=== PATIENT | male | born 1935 | race Caucasian/White ===

== ENCOUNTER 2021-08-09 11:01 | Day surgery (SDC) | payer OTHER, BC ==
[2021-08-09] MEDS ORDERED: FERRIC CARBOXYMALTOSE 750 MG in SODIUM CHLORIDE 250 ML IVPB ONE (11:45)
[2021-08-09 13:22] VITALS: BP 136/82; PULSE 76; TEMP 97.6
== END 2021-08-09 14:00 | disposition home or self-care (01) ==
LOC: FM/S 11:01 → FINFUSION 11:01
PROVIDERS: ATTEND Family Medicine
PROC: 3E033GC Introduction of Other Therapeutic Substance into Peripheral Vein, Percutaneous Approach (ICD-10-PCS; principal; 2021-08-09)
DX: D50.9 Iron deficiency anemia, unspecified (principal); I48.91 Unspecified atrial fibrillation; I13.0 Hypertensive heart and chronic kidney disease with heart failure and stage 1 through stage 4 chronic kidney disease, or unspecified chronic kidney disease; N18.9 Chronic kidney disease, unspecified
CPT/HCPCS: 96365; J1439

== ENCOUNTER 2021-08-16 10:38 | Day surgery (SDC) | payer OTHER, BC ==
[2021-08-16 11:21] VITALS: TEMP 97.9
[2021-08-16] MEDS ORDERED: FERRIC CARBOXYMALTOSE 750 MG in SODIUM CHLORIDE 250 ML IVPB ONE (11:30)
[2021-08-16 13:35] VITALS: BP 129/71; PULSE 62
== END 2021-08-16 13:38 | disposition home or self-care (01) ==
LOC: FINFUSION 10:38 → FM/S 10:43 → FINFUSION 13:38
PROVIDERS: ATTEND Family Medicine
PROC: 3E033GC Introduction of Other Therapeutic Substance into Peripheral Vein, Percutaneous Approach (ICD-10-PCS; principal; 2021-08-16)
DX: D64.9 Anemia, unspecified (principal)
CPT/HCPCS: 96365; J1439

== ENCOUNTER 2022-02-17 04:41 | Day surgery (SDC) | payer OTHER, BC ==
[2022-02-12 16:20] VITALS: BMI 28.7
[2022-02-17 08:20] VITALS: PULSE 60
[2022-02-17 09:27] VITALS: TEMP 97.5
[2022-02-17 10:09] VITALS: BP 157/31
== END 2022-02-17 10:20 | disposition home or self-care (01) ==
LOC: JASU-ENDO 04:41
PROVIDERS: ATTEND Internal Medicine Gastroenterology
PROC: 0DBK8ZX Excision of Ascending Colon, Via Natural or Artificial Opening Endoscopic, Diagnostic (ICD-10-PCS; 2022-02-17)
PROC: 0DBH8ZX Excision of Cecum, Via Natural or Artificial Opening Endoscopic, Diagnostic (ICD-10-PCS; 2022-02-17)
PROC: 0DB98ZX Excision of Duodenum, Via Natural or Artificial Opening Endoscopic, Diagnostic (ICD-10-PCS; 2022-02-17)
PROC: 0DB78ZX Excision of Stomach, Pylorus, Via Natural or Artificial Opening Endoscopic, Diagnostic (ICD-10-PCS; 2022-02-17)
PROC: 0DBL8ZX Excision of Transverse Colon, Via Natural or Artificial Opening Endoscopic, Diagnostic (ICD-10-PCS; principal; 2022-02-17 09:00)
DX: Z12.11 Encounter for screening for malignant neoplasm of colon (principal); D12.3 Benign neoplasm of transverse colon; D12.0 Benign neoplasm of cecum; D12.2 Benign neoplasm of ascending colon; K57.30 Diverticulosis of large intestine without perforation or abscess without bleeding; K64.8 Other hemorrhoids; K55.20 Angiodysplasia of colon without hemorrhage; D50.9 Iron deficiency anemia, unspecified
CPT/HCPCS: 88305-TC; 88342-TC

== ENCOUNTER 2022-06-24 05:34 | Day surgery (SDC) | payer OTHER, BC ==
[2022-06-20 11:37] VITALS: BMI 26.4
[2022-06-24 15:10] VITALS: BP 146/80; PULSE 80; RESP 24; TEMP 98.2
== END 2022-06-24 15:00 | disposition home or self-care (01) ==
LOC: JRADIR 05:34
PROVIDERS: ATTEND Family Medicine
PROC: 0BBJ3ZX Excision of Left Lower Lung Lobe, Percutaneous Approach, Diagnostic (ICD-10-PCS; principal; 2022-06-24)
DX: C34.32 Malignant neoplasm of lower lobe, left bronchus or lung (principal)
CPT/HCPCS: 32408; 71046-TC-FY; 88305-TC; 88341-TC; 88342-TC

== ENCOUNTER 2022-09-08 04:56 | Day surgery (SDC) | payer OTHER, BC ==
[2022-09-03 10:28] VITALS: BMI 25.9
[2022-09-08 08:06] LABS: BASO % 0.9 % (0-2.0); EOS % 4.2 % (0-4.5); HEMATOCRIT 42.2 % (35.4-49); HEMOGLOBIN 14.2 GM/dL (11.7-16.9); LYMPH % 11.4 % (8-40); MCH 34.9 pg (25.7-33.7); MCHC 33.6 g/dl (32.0-35.9); MEAN CELL VOLUME 103.8 fl (80-96); MEAN PLT VOLUME 7.4 fl (7.5-11.1); MONO % 10.4 % (3.8-10.2); NEUT % 73.1 % (42.8-82.8); PLATELET COUNT 160 10^3/uL (134-434); RBC 4.07 M/mm3 (4.00-5.60); RDW 14.9 % (11.9-15.9); WHITE BLOOD COUNT 6.8 K/mm3 (4.0-10.0)
[2022-09-08 08:31] LABS: ALBUMIN 3.1 g/dl (3.4-5.0); BLOOD UREA NITROGEN 18.6 mg/dL (7-18); CALCIUM 9.2 mg/dL (8.5-10.1)
[2022-09-08 08:34] LABS: BILIRUBIN,DIRECT 0.3 mg/dL (0.0-0.2); CREATININE 1.2 mg/dL (0.55-1.3)
[2022-09-08 08:36] LABS: BILIRUBIN,TOTAL 0.9 mg/dL (0.2-1)
[2022-09-08] MEDS ORDERED: SODIUM CHLORIDE 250 ML IV ONE (09:00)
[2022-09-08] MEDS ORDERED: FENTANYL CITRATE/PF 50 MCG/ML VIAL ONE (09:05)
[2022-09-08] MEDS ORDERED: MIDAZOLAM HCL 2 MG/2 ML SINGLE DOSE VIAL ONE (09:05)
[2022-09-08] MEDS ORDERED: MIDAZOLAM HCL 2 MG/2 ML SINGLE DOSE VIAL IVPUSH ONE (09:40)
[2022-09-08] MEDS ORDERED: FENTANYL CITRATE/PF 50 MCG/ML VIAL IVPUSH ONE (09:40)
[2022-09-08] MEDS ORDERED: FOSAPREPITANT DIMEGLUMINE 150 MG in SODIUM CHLORIDE 145 ML IVPB ONE (10:00)
[2022-09-08] MEDS ORDERED: DEXAMETHASONE SODIUM PHOSPHATE 10 MG in SODIUM CHLORIDE 50 ML IVPB ONE (10:00)
[2022-09-08] MEDS ORDERED: PALONOSETRON HCL 0.25 MG/5 ML VIAL IVPUSH ONE (10:00)
[2022-09-08] MEDS ORDERED: SODIUM CHLORIDE IVPB ONE (10:30)
[2022-09-08] MEDS ORDERED: CARBOPLATIN IVPB ONE (10:30)
[2022-09-08] MEDS ORDERED: ETOPOSIDE 160 MG in SODIUM CHLORIDE 0.9% 500 ML IV ONE (11:00)
[2022-09-08 11:07] VITALS: TEMP 97.3
[2022-09-08] MEDS ORDERED: SODIUM CHLORIDE 0.9% IV ONE (12:15)
[2022-09-08] MEDS ORDERED: ETOPOSIDE IV ONE (12:15)
[2022-09-08] MEDS ORDERED: PORTA CATH FLUSH 10 ML IVPUSH PRN (17:53)
[2022-09-09 07:54] VITALS: BP 103/53; PULSE 60; RESP 18
== END 2022-09-08 11:36 | disposition home or self-care (01) ==
LOC: JRADIR 04:56
PROVIDERS: ATTEND Internal Medicine Hematology & Oncology
PROC: 3E04305 Introduction of Other Antineoplastic into Central Vein, Percutaneous Approach (ICD-10-PCS; principal; 2022-09-08)
PROC: 0JH63WZ Insertion of Totally Implantable Vascular Access Device into Chest Subcutaneous Tissue and Fascia, Percutaneous Approach (ICD-10-PCS; 2022-09-08)
PROC: 02HV33Z Insertion of Infusion Device into Superior Vena Cava, Percutaneous Approach (ICD-10-PCS; 2022-09-08)
PROC: B548ZZA Ultrasonography of Superior Vena Cava, Guidance (ICD-10-PCS; 2022-09-08)
DX: Z51.11 Encounter for antineoplastic chemotherapy (principal); C34.90 Malignant neoplasm of unspecified part of unspecified bronchus or lung
CPT/HCPCS: 36561; 96367; 96375; 96413; 96415; 96417; C1788; 36415; 77001-TC-FY; 80048; 80076; 82378; 83735; 85025; J1453; J2469; J9181

== ENCOUNTER 2022-09-09 15:45 | Day surgery (SDC) | payer OTHER, BC ==
[~2022-09-09 15:45] MED LIST: DEXAMETHASONE SODIUM PHOSPHATE 6 MG in SODIUM CHLORIDE 50 ML IVPB ONE; ETOPOSIDE 160 MG in SODIUM CHLORIDE 0.9% 500 ML IV ONE
[2022-09-09 16:07] VITALS: RESP 20; TEMP 97.4
[2022-09-09] MEDS ORDERED: PORTA CATH FLUSH 10 ML IVPUSH PRN (16:12)
[2022-09-09 16:13] VITALS: BP 132/65; PULSE 59
== END 2022-09-09 16:00 | disposition home or self-care (01) ==
LOC: J7W 15:45 → JONCCHEMO 15:45
PROVIDERS: ATTEND Internal Medicine Hematology & Oncology
DX: Z51.11 Encounter for antineoplastic chemotherapy (principal); C34.90 Malignant neoplasm of unspecified part of unspecified bronchus or lung
CPT/HCPCS: 96375; 96413; 96415

== ENCOUNTER 2022-09-10 11:59 | Day surgery (SDC) | payer OTHER, BC ==
[~2022-09-10 11:59] MED LIST changes: +DEXAMETHASONE SODIUM PHOSPHATE 4 MG in SODIUM CHLORIDE 50 ML IVPB ONE; -DEXAMETHASONE SODIUM PHOSPHATE 6 MG in SODIUM CHLORIDE 50 ML IVPB ONE
[2022-09-10 15:13] VITALS: RESP 20; TEMP 97.4
[2022-09-10 15:44] VITALS: BP 118/73; PULSE 59
[2022-09-10] MEDS ORDERED: PORTA CATH FLUSH 10 ML IVPUSH PRN (15:50)
== END 2022-09-10 14:35 | disposition home or self-care (01) ==
LOC: JONCCHEMO 11:59
PROVIDERS: ATTEND Internal Medicine Hematology & Oncology
DX: Z51.11 Encounter for antineoplastic chemotherapy (principal); C34.90 Malignant neoplasm of unspecified part of unspecified bronchus or lung
CPT/HCPCS: 96375; 96413; 96415

== ENCOUNTER 2022-09-11 10:55 | Day surgery (SDC) | payer OTHER, BC ==
[~2022-09-11 10:55] MED LIST changes: -DEXAMETHASONE SODIUM PHOSPHATE 4 MG in SODIUM CHLORIDE 50 ML IVPB ONE; -ETOPOSIDE 160 MG in SODIUM CHLORIDE 0.9% 500 ML IV ONE; +PEGFILGRASTIM-CBQV (UDENYCA) 6 MG/0.6 ML SYRINGE SQ ONE
[2022-09-11 13:17] VITALS: BP 127/76; PULSE 59; RESP 18; TEMP 96.8
== END 2022-09-11 11:30 | disposition home or self-care (01) ==
LOC: JONCCHEMO 10:55
PROVIDERS: ATTEND Internal Medicine Hematology & Oncology
PROC: 3E013GC Introduction of Other Therapeutic Substance into Subcutaneous Tissue, Percutaneous Approach (ICD-10-PCS; principal; 2022-09-11)
DX: Z76.89 Persons encountering health services in other specified circumstances (principal); C34.90 Malignant neoplasm of unspecified part of unspecified bronchus or lung
CPT/HCPCS: 96372; Q5111

== ENCOUNTER → 2022-09-29 | Day surgery (SDC) | payer OTHER, BC ==
[~2022-09-29] MED LIST changes: +CARBOPLATIN IVPB ONE; +DEXAMETHASONE SODIUM PHOSPHATE 8 MG in SODIUM CHLORIDE 50 ML IVPB ONE; +ETOPOSIDE IV ONE; +FOSAPREPITANT DIMEGLUMINE 150 MG in SODIUM CHLORIDE 145 ML IVPB ONE; +PALONOSETRON HCL 0.25 MG/5 ML VIAL IVPUSH ONE; -PEGFILGRASTIM-CBQV (UDENYCA) 6 MG/0.6 ML SYRINGE SQ ONE; +PORTA CATH FLUSH 10 ML IVPUSH PRN; +SODIUM CHLORIDE 0.9% IV ONE; +SODIUM CHLORIDE 250 ML IV ONE; +SODIUM CHLORIDE IVPB ONE
[2022-09-29 11:10] LABS: BASO % 0.2 % (0-2.0); EOS % 0.5 % (0-4.5); HEMOGLOBIN 13.2 GM/dL (11.7-16.9); LYMPH % 5.6 % (8-40); MCH 35.1 pg (25.7-33.7); MCHC 33.8 g/dl (32.0-35.9); MEAN CELL VOLUME 103.7 fl (80-96); MEAN PLT VOLUME 7.8 fl (7.5-11.1); MONO % 13.2 % (3.8-10.2); NEUT % 80.5 % (42.8-82.8); PLATELET COUNT 173 10^3/uL (134-434); RBC 3.76 M/mm3 (4.00-5.60); RDW 14.5 % (11.9-15.9)
[2022-09-29 11:34] LABS: CALCIUM 9.2 mg/dL (8.5-10.1)
[2022-09-29 11:35] LABS: ALBUMIN 3.2 g/dl (3.4-5.0); BLOOD UREA NITROGEN 21.6 mg/dL (7-18)
[2022-09-29 11:37] LABS: BILIRUBIN,DIRECT 0.3 mg/dL (0.0-0.2); URIC ACID 4.3 mg/dL (2.6-7.2)
[2022-09-29 11:38] LABS: CREATININE 1.3 mg/dL (0.55-1.3)
[2022-09-29 11:39] LABS: BILIRUBIN,TOTAL 0.6 mg/dL (0.2-1); TOT PROT 6.3 g/dl (6.4-8.2)
[2022-09-29 15:18] VITALS: RESP 18; TEMP 97.5
[2022-09-29 16:24] VITALS: BP 142/75; PULSE 59
== END | disposition home or self-care (01) ==
LOC: JONCCHEMO 10:09
PROVIDERS: ATTEND Internal Medicine Hematology & Oncology
DX: Z51.11 Encounter for antineoplastic chemotherapy (principal); C34.90 Malignant neoplasm of unspecified part of unspecified bronchus or lung
CPT/HCPCS: 36415; 80048; 80076; 83615; 83735; 84550; 85025; 96367; 96375; 96413; 96415; 96417; J1453; J2469; J9181

== ENCOUNTER 2022-09-30 09:32 | Day surgery (SDC) | payer OTHER, BC ==
[~2022-09-30 09:32] MED LIST changes: -CARBOPLATIN IVPB ONE; +DEXAMETHASONE SODIUM PHOSPHATE 6 MG in SODIUM CHLORIDE 50 ML IVPB ONE; -DEXAMETHASONE SODIUM PHOSPHATE 8 MG in SODIUM CHLORIDE 50 ML IVPB ONE; -ETOPOSIDE IV ONE; -FOSAPREPITANT DIMEGLUMINE 150 MG in SODIUM CHLORIDE 145 ML IVPB ONE; -PALONOSETRON HCL 0.25 MG/5 ML VIAL IVPUSH ONE; -PORTA CATH FLUSH 10 ML IVPUSH PRN; -SODIUM CHLORIDE 0.9% IV ONE; -SODIUM CHLORIDE 250 ML IV ONE; -SODIUM CHLORIDE IVPB ONE
[2022-09-30] MEDS ORDERED: ETOPOSIDE IV ONE (10:00)
[2022-09-30] MEDS ORDERED: SODIUM CHLORIDE 0.9% IV ONE (10:00)
[2022-09-30 17:58] VITALS: BP 131/77; PULSE 63; RESP 20; TEMP 97.7
[2022-09-30] MEDS ORDERED: PORTA CATH FLUSH 10 ML IVPUSH PRN (17:58)
== END 2022-09-30 13:10 | disposition home or self-care (01) ==
LOC: JONCCHEMO 09:32
PROVIDERS: ATTEND Internal Medicine Hematology & Oncology
PROC: 3E04305 Introduction of Other Antineoplastic into Central Vein, Percutaneous Approach (ICD-10-PCS; principal; 2022-09-30)
PROC: 3E043GC Introduction of Other Therapeutic Substance into Central Vein, Percutaneous Approach (ICD-10-PCS; 2022-09-30)
DX: Z51.11 Encounter for antineoplastic chemotherapy (principal); C34.90 Malignant neoplasm of unspecified part of unspecified bronchus or lung
CPT/HCPCS: 96375; 96413; 96415

== ENCOUNTER 2022-10-01 09:49 | Day surgery (SDC) | payer OTHER, BC ==
[~2022-10-01 09:49] MED LIST changes: +DEXAMETHASONE SODIUM PHOSPHATE 4 MG in SODIUM CHLORIDE 50 ML IVPB ONE; -DEXAMETHASONE SODIUM PHOSPHATE 6 MG in SODIUM CHLORIDE 50 ML IVPB ONE
[2022-10-01] MEDS ORDERED: SODIUM CHLORIDE 0.9% IV ONE (10:00)
[2022-10-01] MEDS ORDERED: ETOPOSIDE IV ONE (10:00)
[2022-10-01 14:53] VITALS: BP 136/69; PULSE 60; RESP 18; TEMP 97.4
[2022-10-01] MEDS ORDERED: PORTA CATH FLUSH 10 ML IVPUSH PRN (14:59)
== END 2022-10-01 13:50 | disposition home or self-care (01) ==
LOC: JONCCHEMO 09:49
PROVIDERS: ATTEND Internal Medicine Hematology & Oncology
PROC: 3E04305 Introduction of Other Antineoplastic into Central Vein, Percutaneous Approach (ICD-10-PCS; principal; 2022-10-01)
PROC: 3E043GC Introduction of Other Therapeutic Substance into Central Vein, Percutaneous Approach (ICD-10-PCS; 2022-10-01)
DX: Z51.11 Encounter for antineoplastic chemotherapy (principal); C34.90 Malignant neoplasm of unspecified part of unspecified bronchus or lung
CPT/HCPCS: 96375; 96413; 96415

== ENCOUNTER 2022-10-02 10:25 | Day surgery (SDC) | payer OTHER, BC ==
[~2022-10-02 10:25] MED LIST changes: -DEXAMETHASONE SODIUM PHOSPHATE 4 MG in SODIUM CHLORIDE 50 ML IVPB ONE; +PEGFILGRASTIM-CBQV (UDENYCA) 6 MG/0.6 ML SYRINGE SQ ONE
[2022-10-02 12:34] VITALS: BP 143/76; PULSE 60; RESP 20; TEMP 97.5
== END 2022-10-02 11:05 | disposition home or self-care (01) ==
LOC: JONCCHEMO 10:25
PROVIDERS: ATTEND Internal Medicine Hematology & Oncology
PROC: 3E013GC Introduction of Other Therapeutic Substance into Subcutaneous Tissue, Percutaneous Approach (ICD-10-PCS; principal; 2022-10-02)
DX: C34.90 Malignant neoplasm of unspecified part of unspecified bronchus or lung (principal); Z76.89 Persons encountering health services in other specified circumstances
CPT/HCPCS: 96372; Q5111

== ENCOUNTER → 2022-10-20 | Day surgery (SDC) | payer OTHER, BC ==
[~2022-10-20] MED LIST changes: +DEXAMETHASONE SODIUM PHOSPHATE 8 MG in SODIUM CHLORIDE 50 ML IVPB ONE; +ETOPOSIDE IV ONE; +FOSAPREPITANT DIMEGLUMINE 150 MG in SODIUM CHLORIDE 145 ML IVPB ONE; +PALONOSETRON HCL 0.25 MG/5 ML VIAL IVPUSH ONE; -PEGFILGRASTIM-CBQV (UDENYCA) 6 MG/0.6 ML SYRINGE SQ ONE; +SODIUM CHLORIDE 0.9% IV ONE; +SODIUM CHLORIDE 250 ML IV ONE
[2022-10-20 10:31] LABS: BASO % 0.2 % (0-2.0); EOS % 2.4 % (0-4.5); HEMATOCRIT 33.4 % (35.4-49); HEMOGLOBIN 11.3 GM/dL (11.7-16.9); LYMPH % 6.3 % (8-40); MCH 35.3 pg (25.7-33.7); MCHC 33.8 g/dl (32.0-35.9); MEAN CELL VOLUME 104.5 fl (80-96); MEAN PLT VOLUME 7.1 fl (7.5-11.1); MONO % 14.5 % (3.8-10.2); NEUT % 76.6 % (42.8-82.8); PLATELET COUNT 146 10^3/uL (134-434); RDW 16.9 % (11.9-15.9); WHITE BLOOD COUNT 6.1 K/mm3 (4.0-10.0)
[2022-10-20 10:55] LABS: CALCIUM 9.1 mg/dL (8.5-10.1)
[2022-10-20 10:56] LABS: ALBUMIN 2.9 g/dl (3.4-5.0); BLOOD UREA NITROGEN 16.7 mg/dL (7-18); MAGNESIUM 2.1 mg/dL (1.8-2.4)
[2022-10-20 10:58] LABS: BILIRUBIN,DIRECT 0.2 mg/dL (0.0-0.2)
[2022-10-20 10:59] LABS: CREATININE 1.3 mg/dL (0.55-1.3)
[2022-10-20 11:00] LABS: TOT PROT 5.7 g/dl (6.4-8.2)
[2022-10-20 11:01] LABS: BILIRUBIN,TOTAL 0.4 mg/dL (0.2-1)
== END | disposition home or self-care (01) ==
LOC: JONCCHEMO 09:19
PROVIDERS: ATTEND Internal Medicine Hematology & Oncology
DX: Z53.8 Procedure and treatment not carried out for other reasons (principal)
CPT/HCPCS: 36415; 80048; 80076; 83735; 85025

== ENCOUNTER 2022-10-28 12:05 | Day surgery (SDC) | payer OTHER, BC ==
[2022-10-28 12:37] LABS: BASO % 0.4 % (0-2.0); EOS % 1.4 % (0-4.5); HEMATOCRIT 36.1 % (35.4-49); HEMOGLOBIN 12.3 GM/dL (11.7-16.9); LYMPH % 5.6 % (8-40); MCHC 34.1 g/dl (32.0-35.9); MEAN CELL VOLUME 105.8 fl (80-96); MEAN PLT VOLUME 7.4 fl (7.5-11.1); MONO % 13.5 % (3.8-10.2); NEUT % 79.1 % (42.8-82.8); PLATELET COUNT 172 10^3/uL (134-434); RBC 3.42 M/mm3 (4.00-5.60); RDW 18.3 % (11.9-15.9); WHITE BLOOD COUNT 7.4 K/mm3 (4.0-10.0)
[2022-10-28 13:06] LABS: CALCIUM 9.3 mg/dL (8.5-10.1)
[2022-10-28 13:07] LABS: ALBUMIN 3.1 g/dl (3.4-5.0); BLOOD UREA NITROGEN 23.5 mg/dL (7-18)
[2022-10-28 13:09] LABS: CREATININE 1.4 mg/dL (0.55-1.3); URIC ACID 3.9 mg/dL (2.6-7.2)
[2022-10-28 13:10] LABS: BILIRUBIN,DIRECT 0.2 mg/dL (0.0-0.2)
[2022-10-28 13:11] LABS: TOT PROT 6.2 g/dl (6.4-8.2)
[2022-10-28 13:12] LABS: BILIRUBIN,TOTAL 0.5 mg/dL (0.2-1)
[2022-10-28 13:26] LABS: ANISOCYTOSIS 1+; MACROCYTOSIS 1+
[2022-10-28] MEDS ORDERED: SODIUM CHLORIDE 250 ML IV ONE (13:30)
[2022-10-28] MEDS ORDERED: PALONOSETRON HCL 0.25 MG/5 ML VIAL IVPUSH ONE (14:00)
[2022-10-28] MEDS ORDERED: DEXAMETHASONE INJECTION 8 MG in SODIUM CHLORIDE 50 ML IVPB ONE (14:00)
[2022-10-28] MEDS ORDERED: FOSAPREPITANT DIMEGLUMINE 150 MG in SODIUM CHLORIDE 145 ML IVPB ONE (14:00)
[2022-10-28] MEDS ORDERED: ETOPOSIDE IV ONE (15:00)
[2022-10-28] MEDS ORDERED: SODIUM CHLORIDE 0.9% IV ONE (15:00)
[2022-10-28 18:41] VITALS: BP 96/50; PULSE 60; RESP 20; TEMP 97.4
[2022-10-28] MEDS ORDERED: PORTA CATH FLUSH 10 ML IVPUSH PRN (18:41)
== END 2022-10-28 18:00 | disposition home or self-care (01) ==
LOC: JONCCHEMO 12:05
PROVIDERS: ATTEND Internal Medicine Hematology & Oncology
DX: Z51.11 Encounter for antineoplastic chemotherapy (principal); C34.90 Malignant neoplasm of unspecified part of unspecified bronchus or lung
CPT/HCPCS: 36415; 80048; 80076; 83615; 83735; 84550; 85025; 96367; 96375; 96413; 96415; 96417; J1100; J1453; J2469; J9181

== ENCOUNTER 2022-10-29 13:29 | Day surgery (SDC) | payer OTHER, BC ==
[~2022-10-29 13:29] MED LIST changes: +DEXAMETHASONE SODIUM PHOSPHATE 6 MG in SODIUM CHLORIDE 50 ML IVPB ONE; -DEXAMETHASONE SODIUM PHOSPHATE 8 MG in SODIUM CHLORIDE 50 ML IVPB ONE; -FOSAPREPITANT DIMEGLUMINE 150 MG in SODIUM CHLORIDE 145 ML IVPB ONE; -PALONOSETRON HCL 0.25 MG/5 ML VIAL IVPUSH ONE; -SODIUM CHLORIDE 250 ML IV ONE
[2022-10-29 16:43] VITALS: BP 124/59; PULSE 124; RESP 63; TEMP 97.8
[2022-10-29] MEDS ORDERED: PORTA CATH FLUSH 10 ML IVPUSH PRN (16:43)
== END 2022-10-29 16:30 | disposition home or self-care (01) ==
LOC: JONCCHEMO 13:29
PROVIDERS: ATTEND Internal Medicine Hematology & Oncology
DX: Z51.11 Encounter for antineoplastic chemotherapy (principal); C34.90 Malignant neoplasm of unspecified part of unspecified bronchus or lung
CPT/HCPCS: 96367; 96413; 96415

== ENCOUNTER 2022-10-30 12:06 | Day surgery (SDC) | payer OTHER, BC ==
[~2022-10-30 12:06] MED LIST changes: +DEXAMETHASONE SODIUM PHOSPHATE 4 MG in SODIUM CHLORIDE 50 ML IVPB ONE; -DEXAMETHASONE SODIUM PHOSPHATE 6 MG in SODIUM CHLORIDE 50 ML IVPB ONE
[2022-10-30 15:31] VITALS: RESP 18; TEMP 97.3
[2022-10-30] MEDS ORDERED: PORTA CATH FLUSH 10 ML IVPUSH PRN (15:36)
[2022-10-30 15:37] VITALS: BP 162/80; PULSE 59
== END 2022-10-30 15:30 | disposition home or self-care (01) ==
LOC: JONCCHEMO 12:06
PROVIDERS: ATTEND Internal Medicine Hematology & Oncology
DX: Z51.11 Encounter for antineoplastic chemotherapy (principal); C34.90 Malignant neoplasm of unspecified part of unspecified bronchus or lung
CPT/HCPCS: 96375; 96413; 96415; J9999

== ENCOUNTER 2022-10-31 08:22 | Day surgery (SDC) | payer OTHER, BC ==
[2022-10-31] MEDS ORDERED: PEGFILGRASTIM-CBQV (UDENYCA) 6 MG/0.6 ML SYRINGE SQ ONE (10:00)
[2022-10-31 15:13] VITALS: BP 156/83; PULSE 59; RESP 20; TEMP 97.3
== END 2022-10-31 13:45 | disposition home or self-care (01) ==
LOC: JONCCHEMO 08:22
PROVIDERS: ATTEND Internal Medicine Hematology & Oncology
PROC: 3E013GC Introduction of Other Therapeutic Substance into Subcutaneous Tissue, Percutaneous Approach (ICD-10-PCS; principal; 2022-10-31)
DX: C34.90 Malignant neoplasm of unspecified part of unspecified bronchus or lung (principal); Z76.89 Persons encountering health services in other specified circumstances
CPT/HCPCS: 96372; Q5111

== ENCOUNTER 2022-11-18 10:12 | Day surgery (SDC) | payer OTHER, BC ==
[~2022-11-18 10:12] MED LIST changes: +DEXAMETHASONE INJECTION 8 MG in SODIUM CHLORIDE 50 ML IVPB ONE; -DEXAMETHASONE SODIUM PHOSPHATE 4 MG in SODIUM CHLORIDE 50 ML IVPB ONE; -ETOPOSIDE IV ONE; +FOSAPREPITANT DIMEGLUMINE 150 MG in SODIUM CHLORIDE 145 ML IVPB ONE; +PALONOSETRON HCL 0.25 MG/5 ML VIAL IVPUSH ONE; -SODIUM CHLORIDE 0.9% IV ONE; +SODIUM CHLORIDE 250 ML IV ONE
[2022-11-18] MEDS ORDERED: ETOPOSIDE IV ONE (10:30)
[2022-11-18] MEDS ORDERED: SODIUM CHLORIDE 0.9% IV ONE (10:30)
[2022-11-18 11:33] LABS: BASO % 0.1 % (0-2.0); EOS % 1.1 % (0-4.5); HEMOGLOBIN 11.8 GM/dL (11.7-16.9); LYMPH % 2.3 % (8-40); MCH 37.5 pg (25.7-33.7); MCHC 34.5 g/dl (32.0-35.9); MEAN CELL VOLUME 108.6 fl (80-96); MEAN PLT VOLUME 7.5 fl (7.5-11.1); MONO % 15.8 % (3.8-10.2); NEUT % 80.7 % (42.8-82.8); PLATELET COUNT 100 10^3/uL (134-434); RBC 3.13 M/mm3 (4.00-5.60); RDW 19.3 % (11.9-15.9); WHITE BLOOD COUNT 7.9 K/mm3 (4.0-10.0)
[2022-11-18 11:56] LABS: CALCIUM 9.1 mg/dL (8.5-10.1)
[2022-11-18 11:57] LABS: ALBUMIN 3.2 g/dl (3.4-5.0)
[2022-11-18 11:59] LABS: MAGNESIUM 1.9 mg/dL (1.8-2.4)
[2022-11-18 12:00] LABS: CREATININE 1.1 mg/dL (0.55-1.3)
[2022-11-18 12:02] LABS: BILIRUBIN,TOTAL 0.6 mg/dL (0.2-1)
[2022-11-18 12:03] LABS: BILIRUBIN,DIRECT 0.2 mg/dL (0.0-0.2)
[2022-11-18 15:57] VITALS: RESP 18; TEMP 97.3
[2022-11-18] MEDS ORDERED: PORTA CATH FLUSH 10 ML IVPUSH PRN (16:10)
[2022-11-18 16:59] VITALS: BP 124/66; PULSE 59
== END 2022-11-18 16:10 | disposition home or self-care (01) ==
LOC: JONCCHEMO 10:12
PROVIDERS: ATTEND Internal Medicine Hematology & Oncology
DX: Z51.11 Encounter for antineoplastic chemotherapy (principal); C34.32 Malignant neoplasm of lower lobe, left bronchus or lung
CPT/HCPCS: 36415; 80048; 80076; 83735; 85025; 96367; 96375; 96413; 96415; 96417; J1100; J1453; J2469; J9181

== ENCOUNTER 2022-11-19 10:00 | Day surgery (SDC) | payer OTHER, BC ==
[~2022-11-19 10:00] MED LIST changes: +DEXAMETHASONE INJECTION 6 MG in SODIUM CHLORIDE 50 ML IVPB ONE; -DEXAMETHASONE INJECTION 8 MG in SODIUM CHLORIDE 50 ML IVPB ONE; +ETOPOSIDE IV ONE; -FOSAPREPITANT DIMEGLUMINE 150 MG in SODIUM CHLORIDE 145 ML IVPB ONE; -PALONOSETRON HCL 0.25 MG/5 ML VIAL IVPUSH ONE; +SODIUM CHLORIDE 0.9% IV ONE; -SODIUM CHLORIDE 250 ML IV ONE
[2022-11-19 17:16] VITALS: PULSE 62; RESP 20; TEMP 97.3
[2022-11-19 17:23] VITALS: BP 127/65
[2022-11-19] MEDS ORDERED: PORTA CATH FLUSH 10 ML IVPUSH PRN (17:23)
== END 2022-11-19 12:45 | disposition home or self-care (01) ==
LOC: JONCCHEMO 10:00
PROVIDERS: ATTEND Internal Medicine Hematology & Oncology
DX: Z51.11 Encounter for antineoplastic chemotherapy (principal); C34.32 Malignant neoplasm of lower lobe, left bronchus or lung
CPT/HCPCS: 96375; 96413; 96415; J1100; J9181

== ENCOUNTER 2022-11-20 09:57 | Day surgery (SDC) | payer OTHER, BC ==
[~2022-11-20 09:57] MED LIST changes: +DEXAMETHASONE INJECTION 4 MG in SODIUM CHLORIDE 50 ML IVPB ONE; -DEXAMETHASONE INJECTION 6 MG in SODIUM CHLORIDE 50 ML IVPB ONE; -ETOPOSIDE IV ONE; -SODIUM CHLORIDE 0.9% IV ONE
[2022-11-20] MEDS ORDERED: ETOPOSIDE IV ONE (10:00)
[2022-11-20] MEDS ORDERED: SODIUM CHLORIDE 0.9% IV ONE (10:00)
[2022-11-20 17:45] VITALS: BP 144/73; PULSE 59; RESP 18; TEMP 98.4
[2022-11-20] MEDS ORDERED: PORTA CATH FLUSH 10 ML IVPUSH PRN (17:45)
== END 2022-11-20 13:00 | disposition home or self-care (01) ==
LOC: JONCCHEMO 09:57 → J7W 09:58 → JONCCHEMO 13:00
PROVIDERS: ATTEND Internal Medicine Hematology & Oncology
DX: Z51.11 Encounter for antineoplastic chemotherapy (principal); C34.32 Malignant neoplasm of lower lobe, left bronchus or lung
CPT/HCPCS: 96367; 96413; 96415; J1100; J9181

== ENCOUNTER 2022-11-21 13:50 | Day surgery (SDC) | payer OTHER, BC ==
[~2022-11-21 13:50] MED LIST changes: -DEXAMETHASONE INJECTION 4 MG in SODIUM CHLORIDE 50 ML IVPB ONE; +PEGFILGRASTIM-CBQV (UDENYCA) 6 MG/0.6 ML SYRINGE SQ ONE
[2022-11-21 17:00] VITALS: BP 132/65; PULSE 59; RESP 18; TEMP 97.5
== END 2022-11-21 14:15 | disposition home or self-care (01) ==
LOC: JONCCHEMO 13:50
PROVIDERS: ATTEND Internal Medicine Hematology & Oncology
PROC: 3E013GC Introduction of Other Therapeutic Substance into Subcutaneous Tissue, Percutaneous Approach (ICD-10-PCS; principal; 2022-11-21)
DX: C34.32 Malignant neoplasm of lower lobe, left bronchus or lung (principal); D70.1 Agranulocytosis secondary to cancer chemotherapy
CPT/HCPCS: 96372; Q5111

== ENCOUNTER 2022-12-09 11:12 | Day surgery (SDC) | payer OTHER, BC ==
[~2022-12-09 11:12] MED LIST changes: +DEXAMETHASONE SODIUM PHOSPHATE 8 MG in SODIUM CHLORIDE 50 ML IVPB ONE; +ETOPOSIDE IV ONE; +FOSAPREPITANT DIMEGLUMINE 150 MG in SODIUM CHLORIDE 145 ML IVPB ONE; +PALONOSETRON HCL 0.25 MG/5 ML VIAL IVPUSH ONE; -PEGFILGRASTIM-CBQV (UDENYCA) 6 MG/0.6 ML SYRINGE SQ ONE; +SODIUM CHLORIDE 0.9% IV ONE; +SODIUM CHLORIDE 250 ML IV ONE
[2022-12-09 11:19] LABS: BASO % 0.3 % (0-2.0); EOS % 1.8 % (0-4.5); HEMATOCRIT 30.8 % (35.4-49); HEMOGLOBIN 10.6 GM/dL (11.7-16.9); MCH 38.5 pg (25.7-33.7); MCHC 34.4 g/dl (32.0-35.9); MEAN PLT VOLUME 8.1 fl (7.5-11.1); MONO % 17.5 % (3.8-10.2); NEUT % 72.4 % (42.8-82.8); PLATELET COUNT 109 10^3/uL (134-434); RBC 2.75 M/mm3 (4.00-5.60); RDW 19.8 % (11.9-15.9); WHITE BLOOD COUNT 5.6 K/mm3 (4.0-10.0)
[2022-12-09 11:42] LABS: ALBUMIN 3.1 g/dl (3.4-5.0); BLOOD UREA NITROGEN 20.4 mg/dL (7-18)
[2022-12-09 11:45] LABS: BILIRUBIN,DIRECT 0.2 mg/dL (0.0-0.2); CREATININE 1.2 mg/dL (0.55-1.3)
[2022-12-09 11:47] LABS: BILIRUBIN,TOTAL 0.6 mg/dL (0.2-1); TOT PROT 5.9 g/dl (6.4-8.2)
[2022-12-09 12:05] LABS: ANISOCYTOSIS 2+; MACROCYTOSIS 2+
[2022-12-09] MEDS ORDERED: PORTA CATH FLUSH 10 ML IVPUSH PRN (16:00)
[2022-12-09 16:39] VITALS: PULSE 60; TEMP 97.7
[2022-12-09 16:50] VITALS: BP 137/69; RESP 20
== END 2022-12-09 16:15 | disposition home or self-care (01) ==
LOC: JONCCHEMO 11:12
PROVIDERS: ATTEND Internal Medicine Hematology & Oncology
DX: Z51.11 Encounter for antineoplastic chemotherapy (principal); C34.32 Malignant neoplasm of lower lobe, left bronchus or lung
CPT/HCPCS: 36415; 80048; 80076; 82378; 83735; 85025; 96367; 96375; 96413; 96415; 96417; J1453; J2469

== ENCOUNTER 2022-12-10 12:05 | Day surgery (SDC) | payer OTHER, BC ==
[~2022-12-10 12:05] MED LIST changes: +DEXAMETHASONE SODIUM PHOSPHATE 6 MG in SODIUM CHLORIDE 50 ML IVPB ONE; -DEXAMETHASONE SODIUM PHOSPHATE 8 MG in SODIUM CHLORIDE 50 ML IVPB ONE; -FOSAPREPITANT DIMEGLUMINE 150 MG in SODIUM CHLORIDE 145 ML IVPB ONE; -PALONOSETRON HCL 0.25 MG/5 ML VIAL IVPUSH ONE; -SODIUM CHLORIDE 250 ML IV ONE
[2022-12-10 16:08] VITALS: PULSE 60; RESP 20; TEMP 96.2
[2022-12-10 16:25] VITALS: BP 116/51
== END 2022-12-10 15:45 | disposition home or self-care (01) ==
LOC: JONCCHEMO 12:05
PROVIDERS: ATTEND Internal Medicine Hematology & Oncology
DX: Z51.11 Encounter for antineoplastic chemotherapy (principal); C34.32 Malignant neoplasm of lower lobe, left bronchus or lung; C85.15 Unspecified B-cell lymphoma, lymph nodes of inguinal region and lower limb
CPT/HCPCS: 96367; 96413; 96415

== ENCOUNTER 2022-12-11 12:19 | Day surgery (SDC) | payer OTHER, BC ==
[~2022-12-11 12:19] MED LIST changes: +DEXAMETHASONE SODIUM PHOSPHATE 4 MG in SODIUM CHLORIDE 50 ML IVPB ONE; -DEXAMETHASONE SODIUM PHOSPHATE 6 MG in SODIUM CHLORIDE 50 ML IVPB ONE
[2022-12-11 16:14] VITALS: BP 152/72; PULSE 60; RESP 20; TEMP 97.3
[2022-12-11] MEDS ORDERED: PORTA CATH FLUSH 10 ML IVPUSH PRN (16:14)
== END 2022-12-11 13:00 | disposition home or self-care (01) ==
LOC: JONCCHEMO 12:19
PROVIDERS: ATTEND Internal Medicine Hematology & Oncology
DX: Z51.11 Encounter for antineoplastic chemotherapy (principal); C34.32 Malignant neoplasm of lower lobe, left bronchus or lung; C85.15 Unspecified B-cell lymphoma, lymph nodes of inguinal region and lower limb
CPT/HCPCS: 96367; 96413; 96415

== ENCOUNTER 2022-12-12 09:55 | Day surgery (SDC) | payer OTHER, BC ==
[2022-12-12] MEDS ORDERED: PEGFILGRASTIM-CBQV (UDENYCA) 6 MG/0.6 ML SYRINGE SQ ONE (10:00)
[2022-12-12 17:40] VITALS: BP 134/73; PULSE 63; RESP 18; TEMP 97.5
== END 2022-12-12 10:30 | disposition home or self-care (01) ==
LOC: JONCCHEMO 09:55
PROVIDERS: ATTEND Internal Medicine Hematology & Oncology
PROC: 3E013GC Introduction of Other Therapeutic Substance into Subcutaneous Tissue, Percutaneous Approach (ICD-10-PCS; principal; 2022-12-12)
DX: Z51.11 Encounter for antineoplastic chemotherapy (principal); C34.32 Malignant neoplasm of lower lobe, left bronchus or lung; C85.15 Unspecified B-cell lymphoma, lymph nodes of inguinal region and lower limb; Z76.89 Persons encountering health services in other specified circumstances
CPT/HCPCS: 96372; Q5111

== ENCOUNTER 2022-12-30 09:57 | Day surgery (SDC) | payer OTHER, BC ==
[~2022-12-30 09:57] MED LIST changes: +DEXAMETHASONE INJECTION 8 MG in SODIUM CHLORIDE 50 ML IVPB ONE; -DEXAMETHASONE SODIUM PHOSPHATE 4 MG in SODIUM CHLORIDE 50 ML IVPB ONE; -ETOPOSIDE IV ONE; +FOSAPREPITANT DIMEGLUMINE 150 MG in SODIUM CHLORIDE 145 ML IVPB ONE; +PALONOSETRON HCL 0.25 MG/5 ML VIAL IVPUSH ONE; -SODIUM CHLORIDE 0.9% IV ONE; +SODIUM CHLORIDE 250 ML IV ONE
[2022-12-30] MEDS ORDERED: ETOPOSIDE IV ONE (10:30)
[2022-12-30] MEDS ORDERED: SODIUM CHLORIDE 0.9% IV ONE (10:30)
[2022-12-30 10:44] LABS: BASO % 0.3 % (0-2.0); EOS % 2.7 % (0-4.5); HEMATOCRIT 29.5 % (35.4-49); HEMOGLOBIN 10.2 GM/dL (11.7-16.9); MCH 38.5 pg (25.7-33.7); MCHC 34.5 g/dl (32.0-35.9); MEAN CELL VOLUME 111.8 fl (80-96); MEAN PLT VOLUME 7.5 fl (7.5-11.1); MONO % 14.1 % (3.8-10.2); NEUT % 77.9 % (42.8-82.8); PLATELET COUNT 98 10^3/uL (134-434); RBC 2.64 M/mm3 (4.00-5.60); RDW 19.6 % (11.9-15.9); WHITE BLOOD COUNT 6.1 K/mm3 (4.0-10.0)
[2022-12-30 11:00] LABS: BLOOD UREA NITROGEN 21.7 mg/dL (7-18); CALCIUM 8.8 mg/dL (8.5-10.1)
[2022-12-30 11:01] LABS: MAGNESIUM 1.7 mg/dL (1.8-2.4)
[2022-12-30 11:03] LABS: BILIRUBIN,DIRECT 0.2 mg/dL (0.0-0.2); CREATININE 1.2 mg/dL (0.55-1.3)
[2022-12-30 11:05] LABS: BILIRUBIN,TOTAL 0.4 mg/dL (0.2-1); TOT PROT 5.9 g/dl (6.4-8.2)
[2022-12-30 11:11] LABS: ANISOCYTOSIS 2+; MACROCYTOSIS 2+; OVALOCYTE 1+
[2022-12-30] MEDS ORDERED: MAGNESIUM SULF 50% (8.12 MEQ/2 ML-1 GM VIAL) IVPB ONE (11:22)
[2022-12-30 16:20] VITALS: BP 119/52; PULSE 60; RESP 20; TEMP 97.7
[2022-12-30] MEDS ORDERED: PORTA CATH FLUSH 10 ML IVPUSH PRN (16:20)
== END 2022-12-30 16:24 | disposition home or self-care (01) ==
LOC: JONCCHEMO 09:57
PROVIDERS: ATTEND Internal Medicine Hematology & Oncology
DX: Z51.11 Encounter for antineoplastic chemotherapy (principal); C34.82 Malignant neoplasm of overlapping sites of left bronchus and lung; C85.15 Unspecified B-cell lymphoma, lymph nodes of inguinal region and lower limb
CPT/HCPCS: 36415; 80048; 80076; 83735; 85025; 96367; 96375; 96413; 96415; 96417; J1100; J1453; J2469; J9181

== ENCOUNTER 2022-12-31 09:58 | Day surgery (SDC) | payer OTHER, BC ==
[~2022-12-31 09:58] MED LIST changes: -DEXAMETHASONE INJECTION 8 MG in SODIUM CHLORIDE 50 ML IVPB ONE; +DEXAMETHASONE SODIUM PHOSPHATE 6 MG in SODIUM CHLORIDE 50 ML IVPB ONE; -FOSAPREPITANT DIMEGLUMINE 150 MG in SODIUM CHLORIDE 145 ML IVPB ONE; -PALONOSETRON HCL 0.25 MG/5 ML VIAL IVPUSH ONE; -SODIUM CHLORIDE 250 ML IV ONE
[2022-12-31] MEDS ORDERED: SODIUM CHLORIDE 0.9% IV ONE (10:00)
[2022-12-31] MEDS ORDERED: ETOPOSIDE IV ONE (10:00)
[2022-12-31 14:45] VITALS: TEMP 97.5
[2022-12-31 14:53] VITALS: BP 120/60; PULSE 62; RESP 18
[2022-12-31] MEDS ORDERED: PORTA CATH FLUSH 10 ML IVPUSH PRN (14:53)
== END 2022-12-31 14:00 | disposition home or self-care (01) ==
LOC: JONCCHEMO 09:58
PROVIDERS: ATTEND Internal Medicine Hematology & Oncology
DX: Z51.11 Encounter for antineoplastic chemotherapy (principal); C34.82 Malignant neoplasm of overlapping sites of left bronchus and lung; C85.15 Unspecified B-cell lymphoma, lymph nodes of inguinal region and lower limb
CPT/HCPCS: 96375; 96413; 96415

== ENCOUNTER 2023-01-01 10:00 | Day surgery (SDC) | payer OTHER, BC ==
[~2023-01-01 10:00] MED LIST changes: +DEXAMETHASONE INJECTION 4 MG in SODIUM CHLORIDE 50 ML IVPB ONE; -DEXAMETHASONE SODIUM PHOSPHATE 6 MG in SODIUM CHLORIDE 50 ML IVPB ONE; +ETOPOSIDE IV ONE; +SODIUM CHLORIDE 0.9% IV ONE
[2023-01-01 13:52] VITALS: BP 157/77; PULSE 59; RESP 18; TEMP 98.7
[2023-01-01] MEDS ORDERED: PORTA CATH FLUSH 10 ML IVPUSH PRN (13:52)
== END 2023-01-01 13:30 | disposition home or self-care (01) ==
LOC: JONCCHEMO 10:00
PROVIDERS: ATTEND Internal Medicine Hematology & Oncology
DX: Z51.11 Encounter for antineoplastic chemotherapy (principal); C34.82 Malignant neoplasm of overlapping sites of left bronchus and lung; C85.15 Unspecified B-cell lymphoma, lymph nodes of inguinal region and lower limb
CPT/HCPCS: 96375; 96413; 96415; J1100; J9181

== ENCOUNTER 2023-01-02 11:23 | Day surgery (SDC) | payer OTHER, BC ==
[~2023-01-02 11:23] MED LIST changes: -DEXAMETHASONE INJECTION 4 MG in SODIUM CHLORIDE 50 ML IVPB ONE; -ETOPOSIDE IV ONE; +PEGFILGRASTIM-CBQV (UDENYCA) 6 MG/0.6 ML SYRINGE SQ ONE; -SODIUM CHLORIDE 0.9% IV ONE
[2023-01-02 14:45] VITALS: BP 128/77; PULSE 60; RESP 20; TEMP 97
== END 2023-01-02 11:30 | disposition home or self-care (01) ==
LOC: JONCCHEMO 11:23
PROVIDERS: ATTEND Internal Medicine Hematology & Oncology
PROC: 3E013GC Introduction of Other Therapeutic Substance into Subcutaneous Tissue, Percutaneous Approach (ICD-10-PCS; principal; 2023-01-02)
DX: C34.82 Malignant neoplasm of overlapping sites of left bronchus and lung (principal); C85.15 Unspecified B-cell lymphoma, lymph nodes of inguinal region and lower limb; Z76.89 Persons encountering health services in other specified circumstances
CPT/HCPCS: 96372; Q5111

== ENCOUNTER 2023-03-02 07:48 | Day surgery (SDC) | payer OTHER, BC ==
[2023-03-02 08:21] LABS: BASO % 1.1 % (0-2.0); EOS % 4.7 % (0-4.5); HEMATOCRIT 33.5 % (35.4-49); HEMOGLOBIN 11.4 GM/dL (11.7-16.9); LYMPH % 8.1 % (8-40); MCH 38.2 pg (25.7-33.7); MCHC 33.9 g/dl (32.0-35.9); MEAN CELL VOLUME 112.7 fl (80-96); MEAN PLT VOLUME 8.4 fl (7.5-11.1); MONO % 9.6 % (3.8-10.2); NEUT % 76.5 % (42.8-82.8); PLATELET COUNT 129 10^3/uL (134-434); RBC 2.98 M/mm3 (4.00-5.60); RDW 16.4 % (11.9-15.9); WHITE BLOOD COUNT 7.5 K/mm3 (4.0-10.0)
[2023-03-02 08:37] LABS: POTASSIUM 4.6 mmol/L (3.5-5.1)
[2023-03-02 08:38] LABS: CALCIUM 9.4 mg/dL (8.5-10.1)
[2023-03-02 08:39] LABS: ALBUMIN 3.2 g/dl (3.4-5.0); BLOOD UREA NITROGEN 25.5 mg/dL (7-18)
[2023-03-02 08:42] LABS: BILIRUBIN,DIRECT 0.2 mg/dL (0.0-0.2); CREATININE 1.3 mg/dL (0.55-1.3)
[2023-03-02 08:43] LABS: BILIRUBIN,TOTAL 0.7 mg/dL (0.2-1); TOT PROT 6.4 g/dl (6.4-8.2)
[2023-03-02 08:46] LABS: URIC ACID 4.2 mg/dL (2.6-7.2)
[2023-03-02] MEDS ORDERED: DURVALUMAB 1,500 MG in SODIUM CHLORIDE 100 ML IV ONE (09:00)
[2023-03-02] MEDS ORDERED: SODIUM CHLORIDE 250 ML IV ONE (09:15)
[2023-03-02 10:10] LABS: ANISOCYTOSIS 3+; MACROCYTOSIS 3+; OVALOCYTE 2+
[2023-03-02 13:47] VITALS: BP 125/63; PULSE 60; RESP 18; TEMP 97.6
[2023-03-02] MEDS ORDERED: PORTA CATH FLUSH 10 ML IVPUSH PRN ×2 (13:47→18:51)
== END 2023-03-02 10:45 | disposition home or self-care (01) ==
LOC: JONCCHEMO 07:48 → J7W 07:49 → JONCCHEMO 10:45
PROVIDERS: ATTEND Internal Medicine Hematology & Oncology
DX: Z12.11 Encounter for screening for malignant neoplasm of colon (principal); C34.90 Malignant neoplasm of unspecified part of unspecified bronchus or lung
CPT/HCPCS: 36415; 80048; 80076; 83615; 84443; 84550; 85025; 86803; 87340; 87517; 96413; J9173

== ENCOUNTER 2023-03-31 09:05 | Day surgery (SDC) | payer OTHER, BC ==
[2023-03-31 09:54] LABS: BASO % 0.2 % (0-2.0); EOS % 1.6 % (0-4.5); HEMATOCRIT 32.6 % (35.4-49); HEMOGLOBIN 11.1 GM/dL (11.7-16.9); LYMPH % 5.2 % (8-40); MCH 37.6 pg (25.7-33.7); MCHC 33.9 g/dl (32.0-35.9); MEAN CELL VOLUME 110.9 fl (80-96); MEAN PLT VOLUME 8.6 fl (7.5-11.1); MONO % 10.2 % (3.8-10.2); NEUT % 82.8 % (42.8-82.8); PLATELET COUNT 122 10^3/uL (134-434); RBC 2.94 M/mm3 (4.00-5.60); RDW 15.4 % (11.9-15.9); WHITE BLOOD COUNT 7.3 K/mm3 (4.0-10.0)
[2023-03-31] MEDS ORDERED: SODIUM CHLORIDE 250 ML IV ONE (10:00)
[2023-03-31 10:12] LABS: POTASSIUM 4.3 mmol/L (3.5-5.1)
[2023-03-31 10:15] LABS: CALCIUM 9.5 mg/dL (8.5-10.1)
[2023-03-31 10:16] LABS: BLOOD UREA NITROGEN 30.5 mg/dL (7-18); MAGNESIUM 1.9 mg/dL (1.8-2.4)
[2023-03-31 10:18] LABS: BILIRUBIN,DIRECT 0.3 mg/dL (0.0-0.2); CREATININE 1.2 mg/dL (0.55-1.3); URIC ACID 4.4 mg/dL (2.6-7.2)
[2023-03-31 10:20] LABS: BILIRUBIN,TOTAL 0.7 mg/dL (0.2-1); TOT PROT 5.9 g/dl (6.4-8.2)
[2023-03-31] MEDS ORDERED: DURVALUMAB 1,500 MG in SODIUM CHLORIDE 100 ML IV ONE (10:30)
[2023-03-31 16:32] VITALS: RESP 20; TEMP 98.3
[2023-03-31 16:40] VITALS: BP 119/53; PULSE 62
[2023-03-31] MEDS ORDERED: PORTA CATH FLUSH 10 ML IVPUSH PRN (16:40)
== END 2023-03-31 12:25 | disposition home or self-care (01) ==
LOC: J7W 09:05 → JONCCHEMO 09:05
PROVIDERS: ATTEND Internal Medicine Hematology & Oncology
DX: Z51.11 Encounter for antineoplastic chemotherapy (principal); C34.90 Malignant neoplasm of unspecified part of unspecified bronchus or lung
CPT/HCPCS: 36415; 80048; 80076; 82150; 82232; 82378; 82533; 82784; 83615; 83690; 83735; 84439; 84443; 84550; 85025; 96413; J9173

== ENCOUNTER 2023-05-25 09:05 | Day surgery (SDC) | payer OTHER, BC ==
[2023-05-25 09:49] LABS: BASO % 0.3 % (0-2.0); EOS % 0.1 % (0-4.5); HEMATOCRIT 35.8 % (35.4-49); HEMOGLOBIN 11.8 GM/dL (11.7-16.9); LYMPH % 6.2 % (8-40); MCH 34.9 pg (25.7-33.7); MEAN CELL VOLUME 105.9 fl (80-96); MEAN PLT VOLUME 8.6 fl (7.5-11.1); NEUT % 84.4 % (42.8-82.8); PLATELET COUNT 158 10^3/uL (134-434); RBC 3.39 M/mm3 (4.00-5.60); WHITE BLOOD COUNT 9.6 K/mm3 (4.0-10.0)
[2023-05-25] MEDS ORDERED: SODIUM CHLORIDE 250 ML IV ONE (10:00)
[2023-05-25 10:20] LABS: POTASSIUM 5.1 mmol/L (3.5-5.1)
[2023-05-25 10:24] LABS: ALBUMIN 2.9 g/dl (3.4-5.0); BLOOD UREA NITROGEN 28.1 mg/dL (7-18); CALCIUM 9.4 mg/dL (8.5-10.1)
[2023-05-25 10:26] LABS: BILIRUBIN,DIRECT 0.3 mg/dL (0.0-0.2); URIC ACID 3.9 mg/dL (2.6-7.2)
[2023-05-25 10:27] LABS: CREATININE 1.2 mg/dL (0.55-1.3)
[2023-05-25 10:28] LABS: BILIRUBIN,TOTAL 0.6 mg/dL (0.2-1); TOT PROT 5.8 g/dl (6.4-8.2)
[2023-05-25] MEDS ORDERED: DURVALUMAB 1,500 MG in SODIUM CHLORIDE 100 ML IV ONE (10:30)
[2023-05-25 15:59] VITALS: BP 98/54; PULSE 89; RESP 20; TEMP 97.5
[2023-05-25] MEDS ORDERED: PORTA CATH FLUSH 10 ML IVPUSH PRN (15:59)
[2023-05-26 23:07] LABS: CARCINOEMBRYONIC ANTIGEN 2.6 ng/mL (0.0-4.7)
== END 2023-05-25 12:40 | disposition home or self-care (01) ==
LOC: JONCCHEMO 09:05 → J7W 09:05 → JONCCHEMO 12:40
PROVIDERS: ATTEND Internal Medicine Hematology & Oncology
DX: Z51.11 Encounter for antineoplastic chemotherapy (principal); C34.32 Malignant neoplasm of lower lobe, left bronchus or lung
CPT/HCPCS: 36415; 80048; 80076; 82150; 82232; 82378; 82533; 82784; 83615; 83690; 83735; 84439; 84443; 84550; 85025; 96413; J9173

== ENCOUNTER 2023-07-11 16:39 | Emergency (ER) | payer OTHER, BC ==
[2023-07-11 16:46] VITALS: TEMP 97.8; BMI 20.9
[2023-07-11] MEDS ORDERED: DIPHTH,PERTUSS(ACELL),TET 0.5 ML DISP.SYRIN IM ONE ×2 (17:51→17:54)
[2023-07-11 19:27] VITALS: BP 120/76; PULSE 66; RESP 18
== END 2023-07-11 19:26 | disposition home or self-care (01) ==
LOC: JER 16:39
PROC: 0HQ1XZZ Repair Face Skin, External Approach (ICD-10-PCS; principal; 2023-07-11)
PROC: 3E0234Z Introduction of Serum, Toxoid and Vaccine into Muscle, Percutaneous Approach (ICD-10-PCS; 2023-07-11)
DX: S01.112A Laceration without foreign body of left eyelid and periocular area, initial encounter (principal); S00.83XA Contusion of other part of head, initial encounter; W01.0XXA Fall on same level from slipping, tripping and stumbling without subsequent striking against object, initial encounter
CPT/HCPCS: 12011-25; 70450-TC; 70486-TC; 72125-TC; 90471; 90715; 93005; 93010; 99284-25

== ENCOUNTER 2023-07-21 08:01 | Day surgery (SDC) | payer OTHER, BC ==
[~2023-07-21 08:01] MED LIST changes: +CARBOPLATIN IVPB ONE; +DEXAMETHASONE SODIUM PHOSPHATE 10 MG in SODIUM CHLORIDE 50 ML IVPB ONE; +DURVALUMAB 1,500 MG in SODIUM CHLORIDE 100 ML IV ONE; +FOSAPREPITANT DIMEGLUMINE 150 MG in SODIUM CHLORIDE 145 ML IVPB ONE; +PACLITAXEL PROTEIN BOUND IVPB ONE; +PALONOSETRON HCL 0.25 MG/5 ML VIAL IVPUSH ONE; -PEGFILGRASTIM-CBQV (UDENYCA) 6 MG/0.6 ML SYRINGE SQ ONE; +SODIUM CHLORIDE 250 ML IV ONE; +SODIUM CHLORIDE IVPB ONE
[2023-07-21 09:23] LABS: POTASSIUM 5.9 mmol/L (3.5-5.1)
[2023-07-21 09:24] LABS: CALCIUM 9.3 mg/dL (8.5-10.1)
[2023-07-21 09:25] LABS: BLOOD UREA NITROGEN 68.1 mg/dL (7-18)
[2023-07-21 09:28] LABS: CREATININE 1.7 mg/dL (0.55-1.3)
[2023-07-21] MEDS ORDERED: SODIUM CHLORIDE 250 ML IV ONE ×2 (09:30→11:30)
[2023-07-21] MEDS ORDERED: DEXAMETHASONE SODIUM PHOSPHATE 10 MG in SODIUM CHLORIDE 50 ML IVPB ONE (10:00)
[2023-07-21] MEDS ORDERED: PALONOSETRON HCL 0.25 MG/5 ML VIAL IVPUSH ONE (10:00)
[2023-07-21] MEDS ORDERED: FOSAPREPITANT DIMEGLUMINE 150 MG in SODIUM CHLORIDE 145 ML IVPB ONE (10:00)
[2023-07-21] MEDS ORDERED: SODIUM CHLORIDE IVPB ONE ×2 (10:30→11:00)
[2023-07-21] MEDS ORDERED: PACLITAXEL PROTEIN BOUND IVPB ONE (10:30)
[2023-07-21] MEDS ORDERED: SODIUM POLYSTYRENE SULFONATE 15 GM/60 ML BOTTLE PO ONE (10:52)
[2023-07-21] MEDS ORDERED: CARBOPLATIN IVPB ONE (11:00)
[2023-07-21 17:13] VITALS: PULSE 64; RESP 18; TEMP 97.6
[2023-07-21 17:27] VITALS: BP 94/53
[2023-07-21] MEDS ORDERED: PORTA CATH FLUSH 10 ML IVPUSH PRN (17:27)
== END 2023-07-21 13:00 | disposition home or self-care (01) ==
LOC: JONCCHEMO 08:01 → J7W 08:02 → JONCCHEMO 13:00
PROVIDERS: ATTEND Internal Medicine Hematology & Oncology
DX: Z51.11 Encounter for antineoplastic chemotherapy (principal); C34.32 Malignant neoplasm of lower lobe, left bronchus or lung
CPT/HCPCS: 36415; 80048; 96375; 96411; 96413; J1453; J2469; J9264

== ENCOUNTER 2023-07-27 11:14 | Inpatient (IN) | payer OTHER, BC ==
[2023-07-27] MEDS ORDERED: SODIUM CHLORIDE 0.9% 500 ML INFUS.BAG IV ONE ×2 (11:57→13:32)
[2023-07-27 12:19] LABS: HEMATOCRIT 33.5 % (35.4-49); HEMOGLOBIN 11.3 GM/dL (11.7-16.9); MCH 36.6 pg (25.7-33.7); MCHC 33.9 g/dl (32.0-35.9); MEAN CELL VOLUME 108.1 fl (80-96); MEAN PLT VOLUME 9.6 fl (7.5-11.1); PLATELET COUNT 73 10^3/uL (134-434); RDW 19.3 % (11.9-15.9); WHITE BLOOD COUNT 4.4 K/mm3 (4.0-10.0)
[2023-07-27 12:25] LABS: INR 1.09 (0.83-1.09); PROTHROMBIN TIME (PATIENT) 12.6 SEC (9.7-13.0)
[2023-07-27 12:28] LABS: ACTIVATED PTT 27.7 SECONDS (25.2-36.5)
[2023-07-27 12:43] LABS: CALCIUM 8.6 mg/dL (8.5-10.1)
[2023-07-27 12:44] LABS: BLOOD UREA NITROGEN 50.3 mg/dL (7-18); MAGNESIUM 1.8 mg/dL (1.8-2.4)
[2023-07-27 12:47] LABS: CREATININE 1.4 mg/dL (0.55-1.3); PHOSPHOROUS 2.2 mg/dL (2.5-4.9)
[2023-07-27 12:49] LABS: BILIRUBIN,TOTAL 1.1 mg/dL (0.2-1); TOT PROT 5.2 g/dl (6.4-8.2)
[2023-07-27 12:52] LABS: N-TERMINAL BNP 692.6 pg/ml (5-450)
[2023-07-27 12:54] LABS: ALBUMIN 2.6 g/dl (3.4-5.0); ANISOCYTOSIS 2+; MACROCYTOSIS 2+
[2023-07-27 13:12] LABS: LACTIC ACID 4.4 mmol/L (0.4-2.0)
[2023-07-27] MEDS ORDERED: SODIUM CHLORIDE 1,000 ML IV STA (14:18)
[2023-07-27] MEDS ORDERED: ALBUTEROL SO4 0.083% IH SOL 2.5 MG/3 ML VIAL.NEB. NEB PRN (20:31)
[2023-07-27] MEDS ORDERED: CEFEPIME HCL 1 GM VIAL (RESTRICTED TO ID) IVPB ONE (20:31)
[2023-07-27] MEDS ORDERED: CEFEPIME 1 GM in DEXTROSE 5%-WATER - 50 ML IVPB ONE (20:45)
[2023-07-27] MEDS ORDERED: VANCOMYCIN/WATER FOR INJ (PEG) 1,000 MG/200 ML BAG IVPB ONE (20:45)
[2023-07-27] MEDS ORDERED: AMIODARONE HCL 200 MG TABLET PO SCH (22:00)
[2023-07-27 22:05] VITALS: BMI 19.8
[2023-07-27] MEDS: AMIODARONE HCL 100 MG TABLET PO SCH (22:49)
[2023-07-27] MEDS: MAGNESIUM OXIDE 400 MG TABLET (FP) PO SCH (22:49)
[2023-07-27 22:57] LABS: PH,URINE 5.5 (5.0-8.0); URINE APPEARANCE CLEAR; URINE BILIRUBIN NEGATIVE (NEGATIVE); URINE COLOR YELLOW; URINE GLUCOSE (UA) NEGATIVE (NEGATIVE); URINE KETONE NEGATIVE (NEGATIVE); URINE LEUK ESTERASE NEGATIVE (NEGATIVE); URINE NITRITE NEGATIVE (NEGATIVE); URINE PROTEIN NEGATIVE (NEGATIVE); URINE UROBILINOGEN 0.2 mg/dL (0.2-1.0)
[2023-07-28 06:56] LABS: HEMATOCRIT 30.2 % (35.4-49); MCH 36.7 pg (25.7-33.7); MCHC 33.2 g/dl (32.0-35.9); MEAN CELL VOLUME 110.5 fl (80-96); MEAN PLT VOLUME 9.1 fl (7.5-11.1); PLATELET COUNT 62 10^3/uL (134-434); RBC 2.73 M/mm3 (4.00-5.60); RDW 19.6 % (11.9-15.9); WHITE BLOOD COUNT 2.2 K/mm3 (4.0-10.0)
[2023-07-28 07:08] LABS: POTASSIUM 3.6 mmol/L (3.5-5.1)
[2023-07-28 07:11] LABS: BLOOD UREA NITROGEN 42.3 mg/dL (7-18)
[2023-07-28 07:12] LABS: ALBUMIN 2.3 g/dl (3.4-5.0); MAGNESIUM 1.6 mg/dL (1.8-2.4)
[2023-07-28 07:16] LABS: BILIRUBIN,TOTAL 0.9 mg/dL (0.2-1); TOT PROT 4.4 g/dl (6.4-8.2)
[2023-07-28] MEDS ORDERED: PANTOPRAZOLE SOD 40 MG SUSPENSION PACKET PO SCH (10:00)
[2023-07-28] MEDS: AMIODARONE HCL 100 MG TABLET PO SCH ×2 (10:25→23:25)
[2023-07-28] MEDS: PANTOPRAZOLE 40 MG TABLET PO SCH (10:26)
[2023-07-28] MEDS: DRONABINOL 2.5 MG CAPSULE PO SCH (10:26)
[2023-07-28] MEDS: ALLOPURINOL 100 MG TABLET (FP) PO SCH (10:26)
[2023-07-28] MEDS: MAGNESIUM OXIDE 400 MG TABLET (FP) PO SCH ×2 (10:26→23:25)
[2023-07-28] MEDS: ASPIRIN COATED 81 MG TABLET.EC PO SCH (10:26)
[2023-07-28] MEDS: CEFEPIME 1 GM in DEXTROSE 5%-WATER 100 ML IVPB SCH (17:04)
[2023-07-28] MEDS: VANCOMYCIN/WATER FOR INJ (PEG) 1,000 MG/200 ML BAG IVPB SCH (23:50)
[2023-07-29] MEDS: CEFEPIME 1 GM in DEXTROSE 5%-WATER 100 ML IVPB SCH ×3 (03:00→17:43)
[2023-07-29 07:06] LABS: HEMATOCRIT 30.4 % (35.4-49); HEMOGLOBIN 10.1 GM/dL (11.7-16.9); MCH 36.9 pg (25.7-33.7); MCHC 33.4 g/dl (32.0-35.9); MEAN CELL VOLUME 110.5 fl (80-96); MEAN PLT VOLUME 9.2 fl (7.5-11.1); PLATELET COUNT 57 10^3/uL (134-434); RBC 2.75 M/mm3 (4.00-5.60)
[2023-07-29 07:22] LABS: POTASSIUM 4.7 mmol/L (3.5-5.1)
[2023-07-29 07:25] LABS: ALBUMIN 2.1 g/dl (3.4-5.0); BLOOD UREA NITROGEN 33.2 mg/dL (7-18)
[2023-07-29 07:29] LABS: BILIRUBIN,TOTAL 0.8 mg/dL (0.2-1); TOT PROT 4.2 g/dl (6.4-8.2)
[2023-07-29 10:12] LABS: ANISOCYTOSIS 2+; MACROCYTOSIS 2+
[2023-07-29] MEDS: MAGNESIUM OXIDE 400 MG TABLET (FP) PO SCH ×2 (10:13→21:56)
[2023-07-29] MEDS: AMIODARONE HCL 100 MG TABLET PO SCH ×2 (10:13→21:56)
[2023-07-29] MEDS: PANTOPRAZOLE 40 MG TABLET PO SCH (10:13)
[2023-07-29] MEDS: ASPIRIN COATED 81 MG TABLET.EC PO SCH (10:13)
[2023-07-29] MEDS: ALLOPURINOL 100 MG TABLET (FP) PO SCH (10:13)
[2023-07-29] MEDS: DRONABINOL 2.5 MG CAPSULE PO SCH (10:13)
[2023-07-29] MEDS: AMINO ACIDS 4.25%/D5W 1,000 ML IV SCH (10:18)
[2023-07-29] MEDS: FAT EMULSION/OLIVE/SOY/PHOSPHO 500 ML IV SCH (21:56)
[2023-07-29] MEDS ORDERED: FAT EMULSION/OLIVE/SOY/PHOSPHO 250 ML IV SCH (22:00)
[2023-07-29] MEDS ORDERED: FAT EMULSION/OLIVE/SOY (CLINOLIPID) 500 ML EMULSION IV SCH (22:00)
[2023-07-29] MEDS: VANCOMYCIN/WATER FOR INJ (PEG) 1,000 MG/200 ML BAG IVPB SCH (22:16)
[2023-07-30] MEDS: CEFEPIME 1 GM in DEXTROSE 5%-WATER 100 ML IVPB SCH ×3 (02:01→17:42)
[2023-07-30] MEDS: ASPIRIN COATED 81 MG TABLET.EC PO SCH (10:28)
[2023-07-30] MEDS: MAGNESIUM OXIDE 400 MG TABLET (FP) PO SCH ×2 (10:46→21:29)
[2023-07-30] MEDS: DRONABINOL 2.5 MG CAPSULE PO SCH (10:46)
[2023-07-30] MEDS: PANTOPRAZOLE 40 MG TABLET PO SCH (10:46)
[2023-07-30] MEDS: ALLOPURINOL 100 MG TABLET (FP) PO SCH (10:47)
[2023-07-30] MEDS: AMINO ACIDS 4.25%/D5W 1,000 ML IV SCH (10:47)
[2023-07-30] MEDS: AMIODARONE HCL 100 MG TABLET PO SCH ×2 (10:53→21:29)
[2023-07-30] MEDS ORDERED: FENTANYL CITRATE/PF 50 MCG/ML VIAL ONE (12:26)
[2023-07-30] MEDS: FAT EMULSION/OLIVE/SOY/PHOSPHO 500 ML IV SCH (21:30)
[2023-07-30] MEDS ORDERED: TBO-FILGRASTIM 300 MCG/0.5 ML DISP.SYRINGE SQ ONE (21:58)
[2023-07-30] MEDS: VANCOMYCIN/WATER FOR INJ (PEG) 1,000 MG/200 ML BAG IVPB SCH (22:44)
[2023-07-31] MEDS: CEFEPIME 1 GM in DEXTROSE 5%-WATER 100 ML IVPB SCH ×3 (01:16→17:25)
[2023-07-31 07:08] LABS: POTASSIUM 4.3 mmol/L (3.5-5.1)
[2023-07-31 07:10] LABS: ALBUMIN 1.8 g/dl (3.4-5.0); BLOOD UREA NITROGEN 26.6 mg/dL (7-18); CALCIUM 7.5 mg/dL (8.5-10.1)
[2023-07-31 07:13] LABS: CREATININE 0.7 mg/dL (0.55-1.3)
[2023-07-31 07:15] LABS: BILIRUBIN,TOTAL 0.6 mg/dL (0.2-1); TOT PROT 3.9 g/dl (6.4-8.2)
[2023-07-31] MEDS: AMIODARONE HCL 100 MG TABLET PO SCH ×2 (10:47→21:25)
[2023-07-31] MEDS: MULTIVITAMINS (DAILY MVI) TABLET (FP) PO SCH (10:48)
[2023-07-31] MEDS: ASPIRIN COATED 81 MG TABLET.EC PO SCH (10:48)
[2023-07-31] MEDS: ASCORBIC ACID 250 MG TABLET (FP) PO SCH (10:48)
[2023-07-31] MEDS: DRONABINOL 2.5 MG CAPSULE PO SCH (10:48)
[2023-07-31] MEDS: ALLOPURINOL 100 MG TABLET (FP) PO SCH (10:48)
[2023-07-31] MEDS: PANTOPRAZOLE 40 MG TABLET PO SCH (10:48)
[2023-07-31] MEDS: AMINO ACIDS 4.25%/D5W 1,000 ML IV SCH (10:48)
[2023-07-31] MEDS: MAGNESIUM OXIDE 400 MG TABLET (FP) PO SCH ×2 (11:37→21:25)
[2023-07-31 16:33] LABS: HEMATOCRIT 32.1 % (35.4-49); HEMOGLOBIN 10.7 GM/dL (11.7-16.9); MCH 36.3 pg (25.7-33.7); MCHC 33.4 g/dl (32.0-35.9); MEAN CELL VOLUME 108.8 fl (80-96); MEAN PLT VOLUME 9.3 fl (7.5-11.1); PLATELET COUNT 55 10^3/uL (134-434); RBC 2.95 M/mm3 (4.00-5.60); RDW 18.9 % (11.9-15.9)
[2023-07-31 17:40] LABS: ANISOCYTOSIS 1+; MACROCYTOSIS 1+; PLATELET ESTIMATE DECREASED
[2023-07-31] MEDS ORDERED: TBO-FILGRASTIM 300 MCG/0.5 ML DISP.SYRINGE SQ ONE (18:50)
[2023-07-31] MEDS ORDERED: SODIUM CHLORIDE 250 ML IV STA (21:17)
[2023-07-31] MEDS: FLUCONAZOLE 100 MG TABLET (UD) PO SCH (21:25)
[2023-07-31] MEDS: FAT EMULSION/OLIVE/SOY/PHOSPHO 500 ML IV SCH (21:25)
[2023-07-31] MEDS: valACYclovir HCL 500 MG TABLET (FP) PO SCH (21:25)
[2023-07-31] MEDS: VANCOMYCIN/WATER FOR INJ (PEG) 1,000 MG/200 ML BAG IVPB SCH (22:34)
[2023-08-01] MEDS: CEFEPIME 1 GM in DEXTROSE 5%-WATER 100 ML IVPB SCH ×3 (02:56→17:16)
[2023-08-01] MEDS ORDERED: SODIUM CHLORIDE 1,000 ML IV SCH (05:00)
[2023-08-01 07:04] LABS: HEMATOCRIT 28.7 % (35.4-49); HEMOGLOBIN 10.2 GM/dL (11.7-16.9); MCH 37.8 pg (25.7-33.7); MCHC 35.4 g/dl (32.0-35.9); MEAN CELL VOLUME 106.6 fl (80-96); MEAN PLT VOLUME 8.3 fl (7.5-11.1); PLATELET COUNT 49 10^3/uL (134-434); RBC 2.69 M/mm3 (4.00-5.60); RDW 18.5 % (11.9-15.9)
[2023-08-01 07:17] LABS: WHITE BLOOD COUNT 1.8 K/mm3 (4.0-10.0)
[2023-08-01 09:03] LABS: ANISOCYTOSIS 2+; MACROCYTOSIS 2+; OVALOCYTE 1+
[2023-08-01] MEDS: DRONABINOL 2.5 MG CAPSULE PO SCH (10:06)
[2023-08-01] MEDS: ASCORBIC ACID 250 MG TABLET (FP) PO SCH (10:06)
[2023-08-01] MEDS: PANTOPRAZOLE 40 MG TABLET PO SCH (10:06)
[2023-08-01] MEDS: valACYclovir HCL 500 MG TABLET (FP) PO SCH ×2 (10:06→21:52)
[2023-08-01] MEDS: MULTIVITAMINS (DAILY MVI) TABLET (FP) PO SCH (10:06)
[2023-08-01] MEDS: FLUCONAZOLE 100 MG TABLET (UD) PO SCH (10:06)
[2023-08-01] MEDS: ALLOPURINOL 100 MG TABLET (FP) PO SCH (10:06)
[2023-08-01] MEDS: ASPIRIN COATED 81 MG TABLET.EC PO SCH (10:07)
[2023-08-01] MEDS: MAGNESIUM OXIDE 400 MG TABLET (FP) PO SCH ×2 (10:07→21:53)
[2023-08-01] MEDS: AMIODARONE HCL 100 MG TABLET PO SCH ×2 (10:08→21:53)
[2023-08-01] MEDS: AMINO ACIDS 4.25%/D5W 1,000 ML IV SCH (10:09)
[2023-08-01] MEDS: FAT EMULSION/OLIVE/SOY/PHOSPHO 500 ML IV SCH (21:48)
[2023-08-01] MEDS: VANCOMYCIN/WATER FOR INJ (PEG) 1,000 MG/200 ML BAG IVPB SCH (22:09)
[2023-08-02] MEDS: CEFEPIME 1 GM in DEXTROSE 5%-WATER 100 ML IVPB SCH ×3 (01:23→17:22)
[2023-08-02 07:29] LABS: HEMATOCRIT 30.9 % (35.4-49); MCHC 35.6 g/dl (32.0-35.9); MEAN CELL VOLUME 106.7 fl (80-96); MEAN PLT VOLUME 9.3 fl (7.5-11.1); PLATELET COUNT 59 10^3/uL (134-434); WHITE BLOOD COUNT 5.9 K/mm3 (4.0-10.0)
[2023-08-02 07:48] LABS: CHLORIDE 102 mmol/L (98-107); SODIUM 133 mmol/L (136-145)
[2023-08-02 07:56] LABS: BLOOD UREA NITROGEN 29.5 mg/dL (7-18); CO2 26 mmol/L (21-32); GLUCOSE,RANDOM 118 mg/dL (74-106)
[2023-08-02 07:57] LABS: ALBUMIN 1.7 g/dl (3.4-5.0)
[2023-08-02 07:59] LABS: CREATININE 0.9 mg/dL (0.55-1.3)
[2023-08-02 08:00] LABS: SGOT/AST 21 U/L (15-37)
[2023-08-02 08:01] LABS: BILIRUBIN,TOTAL 0.9 mg/dL (0.2-1)
[2023-08-02 08:02] LABS: ALK PHOS 85 U/L (45-117)
[2023-08-02 08:21] LABS: ANION GAP 6 mmol/L (4-13); CALCIUM 6.9 mg/dL (8.5-10.1); POTASSIUM 2.8 mmol/L (3.5-5.1); SGPT/ALT 15 U/L (13-61); TOT PROT 3.8 g/dl (6.4-8.2)
[2023-08-02] MEDS: PANTOPRAZOLE 40 MG TABLET PO SCH (09:56)
[2023-08-02] MEDS: AMINO ACIDS 4.25%/D5W 1,000 ML IV SCH ×2 (09:56→23:12)
[2023-08-02] MEDS: ALLOPURINOL 100 MG TABLET (FP) PO SCH (09:57)
[2023-08-02] MEDS: MULTIVITAMINS (DAILY MVI) TABLET (FP) PO SCH (09:57)
[2023-08-02] MEDS: MAGNESIUM OXIDE 400 MG TABLET (FP) PO SCH ×2 (09:57→22:29)
[2023-08-02] MEDS: ASCORBIC ACID 250 MG TABLET (FP) PO SCH (09:57)
[2023-08-02] MEDS: DRONABINOL 2.5 MG CAPSULE PO SCH (09:57)
[2023-08-02] MEDS: FLUCONAZOLE 100 MG TABLET (UD) PO SCH (09:57)
[2023-08-02] MEDS: valACYclovir HCL 500 MG TABLET (FP) PO SCH ×2 (09:57→22:29)
[2023-08-02] MEDS: ASPIRIN COATED 81 MG TABLET.EC PO SCH (09:57)
[2023-08-02] MEDS: AMIODARONE HCL 100 MG TABLET PO SCH ×2 (09:58→22:29)
[2023-08-02 10:41] LABS: ANISOCYTOSIS 2+; MACROCYTOSIS 2+; OVALOCYTE 1+; TEAR DROP CELLS 2+
[2023-08-02] MEDS ORDERED: POTASSIUM CHLORIDE TABS 10 MEQ TABLET.ER (FP) PO ONE (12:30)
[2023-08-02] MEDS: KCL 10 MEQ IVPB 10 MEQ/100 ML INFUS.BAG IVPB SCH ×3 (13:48→15:59)
[2023-08-02] MEDS: FAT EMULSION/OLIVE/SOY/PHOSPHO 500 ML IV SCH (22:29)
[2023-08-02] MEDS: VANCOMYCIN/WATER FOR INJ (PEG) 1,000 MG/200 ML BAG IVPB SCH (22:30)
[2023-08-03] MEDS: CEFEPIME 1 GM in DEXTROSE 5%-WATER 100 ML IVPB SCH ×3 (03:36→18:13)
[2023-08-03 07:28] LABS: HEMATOCRIT 31.7 % (35.4-49); HEMOGLOBIN 11.9 GM/dL (11.7-16.9); MCH 39.9 pg (25.7-33.7); MCHC 37.6 g/dl (32.0-35.9); MEAN PLT VOLUME 8.2 fl (7.5-11.1); PLATELET COUNT 62 10^3/uL (134-434); RBC 2.99 M/mm3 (4.00-5.60); RDW 19.4 % (11.9-15.9); WHITE BLOOD COUNT 9.6 K/mm3 (4.0-10.0)
[2023-08-03 07:31] LABS: ADD RBC MORPHOLOGY YES
[2023-08-03 07:33] LABS: CHLORIDE 98 mmol/L (98-107); POTASSIUM 3.4 mmol/L (3.5-5.1); SODIUM 130 mmol/L (136-145)
[2023-08-03 07:37] LABS: ALBUMIN 1.8 g/dl (3.4-5.0); ANION GAP 8 mmol/L (4-13); CO2 23 mmol/L (21-32); GLUCOSE,RANDOM 165 mg/dL (74-106)
[2023-08-03 07:40] LABS: CREATININE 0.9 mg/dL (0.55-1.3)
[2023-08-03 07:41] LABS: BILIRUBIN,TOTAL 0.9 mg/dL (0.2-1)
[2023-08-03 07:43] LABS: ALK PHOS 105 U/L (45-117)
[2023-08-03 07:48] LABS: BLOOD UREA NITROGEN 30.4 mg/dL (7-18); CALCIUM 6.7 mg/dL (8.5-10.1); SGOT/AST 36 U/L (15-37); SGPT/ALT 17 U/L (13-61); TOT PROT 4.2 g/dl (6.4-8.2)
[2023-08-03 09:08] LABS: ANISOCYTOSIS 1+; MACROCYTOSIS 2+; OVALOCYTE 1+; TEAR DROP CELLS 2+; TOXIC GRANULATION 1+
[2023-08-03] MEDS: DRONABINOL 2.5 MG CAPSULE PO SCH (10:53)
[2023-08-03] MEDS: ASPIRIN COATED 81 MG TABLET.EC PO SCH (10:54)
[2023-08-03] MEDS: PANTOPRAZOLE 40 MG TABLET PO SCH (10:54)
[2023-08-03] MEDS: FLUCONAZOLE 100 MG TABLET (UD) PO SCH (10:55)
[2023-08-03] MEDS: MAGNESIUM OXIDE 400 MG TABLET (FP) PO SCH ×2 (10:55→22:24)
[2023-08-03] MEDS: valACYclovir HCL 500 MG TABLET (FP) PO SCH ×2 (10:55→22:24)
[2023-08-03] MEDS: MULTIVITAMINS (DAILY MVI) TABLET (FP) PO SCH (10:55)
[2023-08-03] MEDS: ALLOPURINOL 100 MG TABLET (FP) PO SCH (10:55)
[2023-08-03] MEDS: ASCORBIC ACID 250 MG TABLET (FP) PO SCH (10:55)
[2023-08-03] MEDS: AMINO ACIDS 4.25%/D5W 1,000 ML IV SCH (10:56)
[2023-08-03] MEDS: AMIODARONE HCL 100 MG TABLET PO SCH ×2 (10:56→22:24)
[2023-08-03] MEDS ORDERED: POTASSIUM CHLORIDE 10 MEQ in AMINO ACIDS 4.25%/D5W 1,000 ML IV SCH (13:54)
[2023-08-03] MEDS ORDERED: POTASSIUM CHLORIDE ORAL LIQUID 20 MEQ/15 ML PO ONE (14:00)
[2023-08-03] MEDS: KCL 10 MEQ IVPB 10 MEQ/100 ML INFUS.BAG IVPB SCH ×3 (15:09→21:05)
[2023-08-03] MEDS ORDERED: KCL 10 MEQ IVPB 10 MEQ/100 ML INFUS.BAG IVPB SCH (21:00)
[2023-08-03] MEDS: FAT EMULSION/OLIVE/SOY/PHOSPHO 500 ML IV SCH (21:48)
[2023-08-03] MEDS: VANCOMYCIN/WATER FOR INJ (PEG) 1,000 MG/200 ML BAG IVPB SCH (22:00)
[2023-08-04] MEDS: CEFEPIME 1 GM in DEXTROSE 5%-WATER 100 ML IVPB SCH ×3 (03:18→17:10)
[2023-08-04 08:17] LABS: HEMATOCRIT 27.4 % (35.4-49); HEMOGLOBIN 10.7 GM/dL (11.7-16.9); MCHC 39.2 g/dl (32.0-35.9); MEAN CELL VOLUME 107.5 fl (80-96); MEAN PLT VOLUME 9.2 fl (7.5-11.1); PLATELET COUNT 78 10^3/uL (134-434); RBC 2.55 M/mm3 (4.00-5.60); RDW 19.4 % (11.9-15.9); WHITE BLOOD COUNT 9.4 K/mm3 (4.0-10.0)
[2023-08-04 08:24] LABS: MCH 42.1 pg (25.7-33.7)
[2023-08-04 08:36] LABS: POTASSIUM 4.2 mmol/L (3.5-5.1)
[2023-08-04 08:41] LABS: ALBUMIN 1.8 g/dl (3.4-5.0); MAGNESIUM 1.8 mg/dL (1.8-2.4)
[2023-08-04 08:48] LABS: BILIRUBIN,TOTAL 1.1 mg/dL (0.2-1); BLOOD UREA NITROGEN 35.5 mg/dL (7-18); TOT PROT 3.8 g/dl (6.4-8.2)
[2023-08-04 09:53] LABS: ANISOCYTOSIS 2+; MACROCYTOSIS 2+
[2023-08-04] MEDS: ASPIRIN COATED 81 MG TABLET.EC PO SCH (10:53)
[2023-08-04] MEDS: MAGNESIUM OXIDE 400 MG TABLET (FP) PO SCH ×2 (10:53→21:51)
[2023-08-04] MEDS: MULTIVITAMINS (DAILY MVI) TABLET (FP) PO SCH (10:53)
[2023-08-04] MEDS: FLUCONAZOLE 100 MG TABLET (UD) PO SCH (10:54)
[2023-08-04] MEDS: AMIODARONE HCL 100 MG TABLET PO SCH ×2 (10:54→21:51)
[2023-08-04] MEDS: valACYclovir HCL 500 MG TABLET (FP) PO SCH (10:54)
[2023-08-04] MEDS: ALLOPURINOL 100 MG TABLET (FP) PO SCH (10:54)
[2023-08-04] MEDS: ASCORBIC ACID 250 MG TABLET (FP) PO SCH (10:54)
[2023-08-04] MEDS: PANTOPRAZOLE 40 MG TABLET PO SCH (10:54)
[2023-08-04] MEDS: POTASSIUM CHLORIDE 10 MEQ in DEXTROSE 5%-NORMAL SALINE 1,000 ML IVPB SCH (12:21)
[2023-08-05] MEDS: CEFEPIME 1 GM in DEXTROSE 5%-WATER 100 ML IVPB SCH ×3 (03:27→17:56)
[2023-08-05 07:48] LABS: POTASSIUM 4.4 mmol/L (3.5-5.1)
[2023-08-05 07:50] LABS: ALBUMIN 1.8 g/dl (3.4-5.0); BLOOD UREA NITROGEN 32.8 mg/dL (7-18)
[2023-08-05 07:54] LABS: CREATININE 0.9 mg/dL (0.55-1.3)
[2023-08-05 07:56] LABS: BILIRUBIN,TOTAL 0.7 mg/dL (0.2-1); TOT PROT 3.7 g/dl (6.4-8.2)
[2023-08-05 08:11] LABS: CALCIUM 8.3 mg/dL (8.5-10.1)
[2023-08-05] MEDS: PANTOPRAZOLE 40 MG TABLET PO SCH (09:02)
[2023-08-05] MEDS: ASCORBIC ACID 250 MG TABLET (FP) PO SCH (09:02)
[2023-08-05] MEDS: MAGNESIUM OXIDE 400 MG TABLET (FP) PO SCH ×2 (09:02→21:46)
[2023-08-05] MEDS: MULTIVITAMINS (DAILY MVI) TABLET (FP) PO SCH (09:02)
[2023-08-05] MEDS: ASPIRIN COATED 81 MG TABLET.EC PO SCH (09:02)
[2023-08-05] MEDS: ALLOPURINOL 100 MG TABLET (FP) PO SCH (09:02)
[2023-08-05] MEDS: AMIODARONE HCL 100 MG TABLET PO SCH (09:02)
[2023-08-05] MEDS: POTASSIUM CHLORIDE 10 MEQ in DEXTROSE 5%-NORMAL SALINE 1,000 ML IVPB SCH (13:39)
[2023-08-05] MEDS: AMIODARONE HCL 200 MG TABLET PO SCH (21:54)
[2023-08-06] MEDS: CEFEPIME 1 GM in DEXTROSE 5%-WATER 100 ML IVPB SCH ×3 (03:15→17:11)
[2023-08-06 07:03] LABS: HEMATOCRIT 25.9 % (35.4-49); HEMOGLOBIN 8.6 GM/dL (11.7-16.9); MCH 36.5 pg (25.7-33.7); MCHC 33.1 g/dl (32.0-35.9); MEAN CELL VOLUME 110.2 fl (80-96); MEAN PLT VOLUME 9.5 fl (7.5-11.1); PLATELET COUNT 83 10^3/uL (134-434); RBC 2.35 M/mm3 (4.00-5.60); RDW 19.9 % (11.9-15.9); WHITE BLOOD COUNT 7.5 K/mm3 (4.0-10.0)
[2023-08-06 08:50] LABS: ANISOCYTOSIS 2+; MACROCYTOSIS 2+
[2023-08-06] MEDS: AMIODARONE HCL 200 MG TABLET PO SCH ×2 (10:15→21:25)
[2023-08-06] MEDS: MAGNESIUM OXIDE 400 MG TABLET (FP) PO SCH ×2 (10:16→21:25)
[2023-08-06] MEDS: ASPIRIN COATED 81 MG TABLET.EC PO SCH (10:16)
[2023-08-06] MEDS: MULTIVITAMINS (DAILY MVI) TABLET (FP) PO SCH (10:16)
[2023-08-06] MEDS: PANTOPRAZOLE 40 MG TABLET PO SCH (10:16)
[2023-08-06] MEDS: ALLOPURINOL 100 MG TABLET (FP) PO SCH (10:16)
[2023-08-06] MEDS: ASCORBIC ACID 250 MG TABLET (FP) PO SCH (10:16)
[2023-08-06 14:25] LABS: ARTERIAL BLD GAS O2 SATURATION 97.7 % (95-98); ARTERIAL BLOOD GAS BASE EXCESS -5.5 mmol/L (-2-2); ARTERIAL BLOOD GAS PO2 116.6 mmHg (80-100); ARTERIAL BLOOD GAS pH 7.264 (7.350-7.450)
[2023-08-06 14:31] LABS: ALLENS TEST POSITIVE
[2023-08-06] MEDS: POTASSIUM CHLORIDE 10 MEQ in DEXTROSE 5%-NORMAL SALINE 1,000 ML IVPB SCH (16:35)
[2023-08-07] MEDS: CEFEPIME 1 GM in DEXTROSE 5%-WATER 100 ML IVPB SCH ×3 (01:15→18:05)
[2023-08-07 07:50] LABS: HEMATOCRIT 28.2 % (35.4-49); HEMOGLOBIN 9.2 GM/dL (11.7-16.9); MCH 36.8 pg (25.7-33.7); MCHC 32.7 g/dl (32.0-35.9); MEAN CELL VOLUME 112.3 fl (80-96); MEAN PLT VOLUME 8.8 fl (7.5-11.1); PLATELET COUNT 74 10^3/uL (134-434); RBC 2.51 M/mm3 (4.00-5.60); RDW 21.1 % (11.9-15.9); WHITE BLOOD COUNT 7.4 K/mm3 (4.0-10.0)
[2023-08-07 08:09] LABS: POTASSIUM 4.8 mmol/L (3.5-5.1)
[2023-08-07 08:11] LABS: CALCIUM 8.2 mg/dL (8.5-10.1)
[2023-08-07 08:12] LABS: ALBUMIN 1.9 g/dl (3.4-5.0)
[2023-08-07 08:14] LABS: BLOOD UREA NITROGEN 26.9 mg/dL (7-18)
[2023-08-07 08:15] LABS: CREATININE 0.8 mg/dL (0.55-1.3)
[2023-08-07 08:16] LABS: BILIRUBIN,TOTAL 0.8 mg/dL (0.2-1)
[2023-08-07 09:03] LABS: ANISOCYTOSIS 2+; MACROCYTOSIS 2+
[2023-08-07] MEDS: ASPIRIN COATED 81 MG TABLET.EC PO SCH (09:48)
[2023-08-07] MEDS: AMIODARONE HCL 200 MG TABLET PO SCH ×2 (09:48→21:45)
[2023-08-07] MEDS: MAGNESIUM OXIDE 400 MG TABLET (FP) PO SCH ×2 (09:48→21:45)
[2023-08-07] MEDS: ASCORBIC ACID 250 MG TABLET (FP) PO SCH (09:49)
[2023-08-07] MEDS: MULTIVITAMINS (DAILY MVI) TABLET (FP) PO SCH (09:49)
[2023-08-07] MEDS: PANTOPRAZOLE 40 MG TABLET PO SCH (09:49)
[2023-08-07] MEDS: ALLOPURINOL 100 MG TABLET (FP) PO SCH (09:49)
[2023-08-07] MEDS: POTASSIUM CHLORIDE 10 MEQ in DEXTROSE 5%-NORMAL SALINE 1,000 ML IVPB SCH ×2 (11:32→21:47)
[2023-08-08] MEDS: CEFEPIME 1 GM in DEXTROSE 5%-WATER 100 ML IVPB SCH ×3 (02:12→17:46)
[2023-08-08] MEDS: MULTIVITAMINS (DAILY MVI) TABLET (FP) PO SCH (09:52)
[2023-08-08] MEDS: PANTOPRAZOLE 40 MG TABLET PO SCH (09:52)
[2023-08-08] MEDS: MAGNESIUM OXIDE 400 MG TABLET (FP) PO SCH ×2 (09:52→21:51)
[2023-08-08] MEDS: ASCORBIC ACID 250 MG TABLET (FP) PO SCH (09:52)
[2023-08-08] MEDS: ASPIRIN COATED 81 MG TABLET.EC PO SCH (09:53)
[2023-08-08] MEDS: ALLOPURINOL 100 MG TABLET (FP) PO SCH (09:53)
[2023-08-08] MEDS: AMIODARONE HCL 200 MG TABLET PO SCH ×2 (09:53→21:51)
[2023-08-08] MEDS: POTASSIUM CHLORIDE 10 MEQ in DEXTROSE 5%-NORMAL SALINE 1,000 ML IVPB SCH (12:12)
[2023-08-09] MEDS: CEFEPIME 1 GM in DEXTROSE 5%-WATER 100 ML IVPB SCH ×2 (01:18→10:10)
[2023-08-09] MEDS: POTASSIUM CHLORIDE 10 MEQ in DEXTROSE 5%-NORMAL SALINE 1,000 ML IVPB SCH ×2 (02:21→11:38)
[2023-08-09] MEDS: MULTIVITAMINS (DAILY MVI) TABLET (FP) PO SCH (10:11)
[2023-08-09] MEDS: PANTOPRAZOLE 40 MG TABLET PO SCH (10:11)
[2023-08-09] MEDS: ASPIRIN COATED 81 MG TABLET.EC PO SCH (10:11)
[2023-08-09] MEDS: AMIODARONE HCL 200 MG TABLET PO SCH ×2 (10:11→21:37)
[2023-08-09] MEDS: ASCORBIC ACID 250 MG TABLET (FP) PO SCH (10:11)
[2023-08-09] MEDS: MAGNESIUM OXIDE 400 MG TABLET (FP) PO SCH ×2 (10:11→21:37)
[2023-08-09] MEDS: ALLOPURINOL 100 MG TABLET (FP) PO SCH (10:11)
[2023-08-09 12:49] LABS: HEMATOCRIT 29.2 % (35.4-49); HEMOGLOBIN 9.5 GM/dL (11.7-16.9); MCH 37.3 pg (25.7-33.7); MCHC 32.5 g/dl (32.0-35.9); MEAN CELL VOLUME 114.7 fl (80-96); MEAN PLT VOLUME 7.7 fl (7.5-11.1); PLATELET COUNT 63 10^3/uL (134-434); RBC 2.55 M/mm3 (4.00-5.60); RDW 22.2 % (11.9-15.9); WHITE BLOOD COUNT 7.8 K/mm3 (4.0-10.0)
[2023-08-09 13:46] LABS: POTASSIUM 4.8 mmol/L (3.5-5.1)
[2023-08-09 13:49] LABS: BLOOD UREA NITROGEN 30.1 mg/dL (7-18)
[2023-08-09 13:51] LABS: ALBUMIN 1.8 g/dl (3.4-5.0); CALCIUM 8.4 mg/dL (8.5-10.1)
[2023-08-09 13:55] LABS: CREATININE 1.2 mg/dL (0.55-1.3)
[2023-08-09 13:57] LABS: BILIRUBIN,TOTAL 0.7 mg/dL (0.2-1); TOT PROT 4.2 g/dl (6.4-8.2)
[2023-08-09 14:32] LABS: ANISOCYTOSIS 2+; MACROCYTOSIS 2+
[2023-08-10] MEDS: LEVOTHYROXINE NA 25 MCG TABLET (FP) PO SCH (06:05)
[2023-08-10] MEDS: ASCORBIC ACID 250 MG TABLET (FP) PO SCH (10:17)
[2023-08-10] MEDS: PANTOPRAZOLE 40 MG TABLET PO SCH (10:17)
[2023-08-10] MEDS: AMIODARONE HCL 200 MG TABLET PO SCH ×2 (10:17→21:46)
[2023-08-10] MEDS: ALLOPURINOL 100 MG TABLET (FP) PO SCH (10:18)
[2023-08-10] MEDS: MAGNESIUM OXIDE 400 MG TABLET (FP) PO SCH ×2 (10:18→21:53)
[2023-08-10] MEDS: MULTIVITAMINS (DAILY MVI) TABLET (FP) PO SCH (10:18)
[2023-08-10] MEDS ORDERED: FUROSEMIDE 40 MG/4 ML INJECTABLE VIAL IVPUSH ONE ×2 (11:25→13:00)
[2023-08-10] MEDS ORDERED: ACETAMINOPHEN 1000 MG/100 ML BAG IVPB ONE (20:52)
[2023-08-11] MEDS: LEVOTHYROXINE NA 25 MCG TABLET (FP) PO SCH (06:52)
[2023-08-11 07:36] LABS: POTASSIUM 4.6 mmol/L (3.5-5.1)
[2023-08-11 07:39] LABS: ALBUMIN 1.6 g/dl (3.4-5.0); BLOOD UREA NITROGEN 39.3 mg/dL (7-18); CALCIUM 8.4 mg/dL (8.5-10.1)
[2023-08-11 07:42] LABS: CREATININE 1.4 mg/dL (0.55-1.3)
[2023-08-11 07:44] LABS: BILIRUBIN,TOTAL 0.9 mg/dL (0.2-1); TOT PROT 3.8 g/dl (6.4-8.2)
[2023-08-11] MEDS: ALLOPURINOL 100 MG TABLET (FP) PO SCH (10:14)
[2023-08-11] MEDS: MAGNESIUM OXIDE 400 MG TABLET (FP) PO SCH ×2 (10:14→22:29)
[2023-08-11] MEDS: MULTIVITAMINS (DAILY MVI) TABLET (FP) PO SCH (10:15)
[2023-08-11] MEDS: ASCORBIC ACID 250 MG TABLET (FP) PO SCH (10:15)
[2023-08-11] MEDS: PANTOPRAZOLE 40 MG TABLET PO SCH (10:15)
[2023-08-11] MEDS: AMIODARONE HCL 200 MG TABLET PO SCH ×2 (10:16→22:29)
[2023-08-11] MEDS: ACETAMINOPHEN 500 MG TABLET (FP) PO PRN (14:52)
[2023-08-12] MEDS: LEVOTHYROXINE NA 25 MCG TABLET (FP) PO SCH (06:06)
[2023-08-12] MEDS ORDERED: METOPROLOL TARTRATE 5 MG/5 ML VIAL IVPUSH PRN (09:01)
[2023-08-12] MEDS: ACETAMINOPHEN 500 MG TABLET (FP) PO PRN (11:25)
[2023-08-12] MEDS: PANTOPRAZOLE 40 MG TABLET PO SCH (11:25)
[2023-08-12] MEDS: ALLOPURINOL 100 MG TABLET (FP) PO SCH (11:27)
[2023-08-12] MEDS: AMIODARONE HCL 200 MG TABLET PO SCH ×2 (11:27→22:30)
[2023-08-12] MEDS: MULTIVITAMINS (DAILY MVI) TABLET (FP) PO SCH (11:27)
[2023-08-12] MEDS: MAGNESIUM OXIDE 400 MG TABLET (FP) PO SCH ×2 (11:27→22:30)
[2023-08-12] MEDS: ASCORBIC ACID 250 MG TABLET (FP) PO SCH (11:28)
[2023-08-12] MEDS ORDERED: LIDOCAINE HCL 2% JELLY 11 ML TP ONE ×3 (14:27→15:25)
[2023-08-12] MEDS ORDERED: FENTANYL CITRATE/PF 50 MCG/ML VIAL ONE (15:13)
[2023-08-12] MEDS ORDERED: SODIUM CHLORIDE 500 ML IV ONE (15:15)
[2023-08-12] MEDS ORDERED: FENTANYL CITRATE/PF 50 MCG/ML VIAL IVPUSH ONE ×2 (15:15)
[2023-08-12] MEDS ORDERED: CLINDAMYCIN 600MG PREMIX IVPB 600 MG/50 ML BAG IVPB ONE ×3 (15:18→15:30)
[2023-08-13] MEDS: LEVOTHYROXINE NA 25 MCG TABLET (FP) PO SCH (06:35)
[2023-08-13] MEDS: PANTOPRAZOLE 40 MG TABLET PO SCH (10:32)
[2023-08-13] MEDS: MAGNESIUM OXIDE 400 MG TABLET (FP) PO SCH (10:32)
[2023-08-13] MEDS: MULTIVITAMINS (DAILY MVI) TABLET (FP) PO SCH (10:32)
[2023-08-13] MEDS: ASCORBIC ACID 250 MG TABLET (FP) PO SCH (10:32)
[2023-08-13] MEDS: AMIODARONE HCL 200 MG TABLET PO SCH (10:38)
[2023-08-13] MEDS: ALLOPURINOL 100 MG TABLET (FP) PO SCH (10:38)
[2023-08-13 12:39] LABS: BASO % 0.2 % (0-2.0); EOS % 1.3 % (0-4.5); HEMATOCRIT 26.4 % (35.4-49); HEMOGLOBIN 8.5 GM/dL (11.7-16.9); LYMPH % 2.9 % (8-40); MCH 37.7 pg (25.7-33.7); MCHC 32.3 g/dl (32.0-35.9); MEAN CELL VOLUME 116.7 fl (80-96); MEAN PLT VOLUME 9.1 fl (7.5-11.1); NEUT % 85.6 % (42.8-82.8); PLATELET COUNT 51 10^3/uL (134-434); RBC 2.26 M/mm3 (4.00-5.60); RDW 22.5 % (11.9-15.9); WHITE BLOOD COUNT 7.8 K/mm3 (4.0-10.0)
[2023-08-13 13:02] LABS: ANISOCYTOSIS 3+; MACROCYTOSIS 3+; OVALOCYTE 1+
[2023-08-13 13:16] LABS: ALBUMIN 1.8 g/dl (3.4-5.0); BLOOD UREA NITROGEN 49.3 mg/dL (7-18); CALCIUM 9.1 mg/dL (8.5-10.1)
[2023-08-13 13:19] LABS: CREATININE 1.5 mg/dL (0.55-1.3)
[2023-08-13 13:20] LABS: TOT PROT 4.2 g/dl (6.4-8.2)
[2023-08-13 13:22] LABS: BILIRUBIN,TOTAL 0.7 mg/dL (0.2-1)
[2023-08-13] MEDS ORDERED: LEVOTHYROXINE NA 25 MCG TABLET (FP) PEG SCH (17:03)
[2023-08-13] MEDS ORDERED: ACETAMINOPHEN 500 MG TABLET (FP) PEG PRN (17:03)
[2023-08-13] MEDS ORDERED: MAGNESIUM OXIDE 400 MG TABLET (FP) PEG SCH (17:03)
[2023-08-13] MEDS ORDERED: ACETAMINOPHEN 1000 MG/100 ML BAG IVPB ONE ×2 (19:45→23:00)
[2023-08-13] MEDS ORDERED: MORPHINE SULFATE/0.9% NACL/PF 100 MG/100 ML BAG IVPB SCH (20:15)
[2023-08-13] MEDS: AMIODARONE HCL 200 MG TABLET PEG SCH (22:50)
[2023-08-14 06:36] VITALS: RESP 18
[2023-08-14] MEDS ORDERED: SCOPOLAMINE HYDROBROMIDE 1 PATCH PATCH.TD72 TD SCH (07:45)
[2023-08-14] MEDS: ALBUTEROL SO4 2.5/IPRATROPIUM 0.5 INH SOL 3 ML VIAL.NEB. NEB SCH ×3 (08:10→15:15)
[2023-08-14] MEDS ORDERED: MULTIVIT-MINERALS ORAL LIQUID PEG SCH (10:00)
[2023-08-14] MEDS ORDERED: ALLOPURINOL 100 MG TABLET (FP) PEG SCH (10:00)
[2023-08-14] MEDS ORDERED: ASCORBIC ACID 250 MG TABLET (FP) PEG SCH (10:00)
[2023-08-14] MEDS ORDERED: FAMOTIDINE 40 MG/5 ML ORAL SUSPENSION PEG SCH (10:00)
[2023-08-14] MEDS: AMIODARONE HCL 200 MG TABLET PEG SCH (11:01)
[2023-08-14 11:05] VITALS: BP 115/59; PULSE 90; TEMP 98.7
== END 2023-08-14 17:57 | disposition expired | DRG 871 ==
LOC: JER 11:14 → JERBED 14:10 → UNDOADMOB 14:10 → INTOOBSV 14:10 → JERBED 15:17 → J4W 21:35 → OBSVTOIN 07-28 09:22 → J4W 07-29 20:54
PROVIDERS: ADMIT Family Medicine; ATTEND Family Medicine
PROC: 0W9B30Z Drainage of Left Pleural Cavity with Drainage Device, Percutaneous Approach (ICD-10-PCS; principal; 2023-07-30)
PROC: 0DH63UZ Insertion of Feeding Device into Stomach, Percutaneous Approach (ICD-10-PCS; 2023-08-12)
PROC: BD12YZZ Fluoroscopy of Stomach using Other Contrast (ICD-10-PCS; 2023-08-12)
DX: A41.89 Other specified sepsis (principal); J18.9 Pneumonia, unspecified organism; J96.90 Respiratory failure, unspecified, unspecified whether with hypoxia or hypercapnia; J93.9 Pneumothorax, unspecified; C85.10 Unspecified B-cell lymphoma, unspecified site; C34.90 Malignant neoplasm of unspecified part of unspecified bronchus or lung; N17.9 Acute kidney failure, unspecified; D61.818 Other pancytopenia; E87.20 Acidosis, unspecified; E87.1 Hypo-osmolality and hyponatremia; J44.0 Chronic obstructive pulmonary disease with (acute) lower respiratory infection; R64 Cachexia; Z68.1 Body mass index [BMI] 19.9 or less, adult; E86.0 Dehydration; I10 Essential (primary) hypertension; J44.9 Chronic obstructive pulmonary disease, unspecified; K21.9 Gastro-esophageal reflux disease without esophagitis; N40.0 Benign prostatic hyperplasia without lower urinary tract symptoms; I95.9 Hypotension, unspecified; E83.42 Hypomagnesemia; R19.7 Diarrhea, unspecified; I48.91 Unspecified atrial fibrillation; R13.10 Dysphagia, unspecified; R62.7 Adult failure to thrive
CPT/HCPCS: 0241U-QW; 32557; 36415; 36600; 43752; 49440; 70450-TC; 71045-TC-FY; 71046-TC-FY; 74018-TC-FY; 74177-TC; 74220-TC-FY; 74230-TC-FY; 77012-TC; 80053; 81003; 82436; 82607; 82728; 82747; 82803; 83540; 83550; 83605; 83735; 83880; 83930; 83935; 84100; 84133; 84300; 84443; 84484; 85014; 85025; 85027; 85610; 85730; 86140; 87040; 87045; 87046; 87086; 87116; 87205; 87206; 87207; 87209; 87324; 87449; 92611-GN; 93005; 93010; 94640; 97116-GP; 97161-GP; 99285-25; G0378; G0480; J1447; Q9967